=== PATIENT | female | born 1990 | race Caucasian/White ===

== ENCOUNTER 2023-06-02 12:24 | Inpatient (IN) ==
--- NOTE | 2023-06-02 12:47 | Emergency Department Note ---
Impression & Plan Acute alteration in mental status, Acute hypokalemia, Hallucinogenic mushrooms use disorder, moderate ED Provider Note NAME: BOB RIVERA AGE: 32 SEX: F : 1990 ARRIVES VIA: Ambulance INFORMANT: Patient ED PROVIDER(S): Shun Villalobos DO CHIEF COMPLAINT: Altered mental status HPI: Patient is a 32-year-old female who was found outside of a [place] sunbathing [place]. She admits to taking multiple mushrooms. She denies any headache or change in vision. No chest pain or shortness of breath. She denies any belly pain. History is fairly limited as she answers yes and no. She does not know why she is here. PAST MEDICAL HISTORY:See Below PAST SURGICAL HISTORY:See Below FAMILY HISTORY:See Below SOCIAL HISTORY:See Below HOME MEDICATIONS:See Below ALLERGIES:See Below VITALS:See Below PHYSICAL EXAMINATION: GENERAL: Sitting up in bed, alert, well appearing, well nourished, no distress, non-toxic EYE EXAM: normal conjunctiva. PERRL and EOM's grossly intact. OROPHARYNX: no exudate, no erythema, lips, buccal mucosa, and tongue normal and mucous membranes are moist NECK: supple, no nuchal rigidity, no adenopathy, non-tender LUNGS: Clear to auscultation. Normal chest wall mechanics HEART: no murmurs, S1 normal and S2 normal ABDOMEN: abdomen soft, non-tender, normo-active bowel sounds, no masses, no rebound or guarding. BACK: Back is symmetrical on inspection and there is no deformity, no midline tenderness, no CVA tenderness. SKIN: no rashes and no bruising UPPER EXTREMITIES: upper extremities are grossly normal. LOWER EXTREMITIES: No pitting edema. NEURO EXAM: Oriented to person and place moving all extremities but slow to respond to questioning MEDICAL DECISION MAKING: Patient is a 32-year-old female who was found sunbathing naked while outside at [place]. She admits to using mushrooms. IV was established blood work was obtained. Labs show mild leukocytosis of 10,000. No significant anemia. BMP with mild hypokalemia at 2.8. LFTs bilirubin was unremarkable. Troponin was negative. Alcohol, acetaminophen and salicylates were negative. COVID was negative. Her mentation did improve slightly throughout her 6-hour observation within the ER. She was still very anxious and confused with this I discussed the case with the hospitalist for further evaluation and monitoring. Patient was given Ativan while in the ER. Potassium was repleted orally. ED observation The patient was placed in observation status at 1300. Mushroom abuse. During the time in observation, the patient was frequently reassessed and received treatments/testing. On Final reassessment the patient IV as well as blood work and a CT head and chest x-ray which were unremarkable. Patient was given Ativan due to agitation and the patient will be admitted at this time. A total observation time of 6 hours of [facility] Nursing notes reviewed. Limited review of prior medical records performed Vital Signs: reviewed and remarkable for no significant abnormalities Differential diagnosis: Infection, hypoglycemia, electrolyte abnormalities, overdose, toxicologic, cardiac sources, intracerebral event, neurologic, trauma, as well as other pathologies. ER treatment provided: See below Diagnostics interpreted by me include EKG and cardiac monitoring as listed below: -Cardiac Monitoring: An order was placed for continuous cardiac monitoring. The monitor shows a rate of 85 with sinus rhythm. -ECG: Sinus rhythm rate 85 Normal axis No PVCs QTc 454 -Laboratory studies:Interpreted by me as stated above in MDM and shown below. Imaging studies: Xrays: As interpreted by me: Portable AP upright 1 view the chest shows no focal CTs show: CT head was negative Consultation(s): As described in MDM Procedures:none Critical Care: None Past Med/Surg History Social History Smoking Status: Current every day smoker Tobacco Type: Cigarettes Preferred Language: Vietnamese Feels Safe at Home: Yes Allergies Allergies Allergy/AdvReac Type Severity Reaction Status Date / Time No Known Allergies Allergy Verified 06/02/23 15:25 Home Meds Home Medications Medication Instructions Recorded Confirmed No Known Home Medications 06/02/23 06/02/23 Results & Data (ED) Vital Signs Vital Signs - 24 hr 06/02/23 12:48 06/02/23 12:48 06/02/23 13:07 Temperature 36.9 C Temperature Source Oral Pulse Rate 93 H 92 H Pulse Rate [Apical] Respiratory Rate 20 Respiratory Effort / Characteristics Non-Labored Respiratory Depth Normal Respiratory Pattern Regular Blood Pressure 146/99 H Blood Pressure [Right Arm] Blood Pressure Mean 114 Blood Pressure Mean [Right Arm] Pulse Oximetry 99 99 Oxygen Delivery Method Room Air Room Air Oxygen Flow Rate 0 Sepsis Recent Fever Within 48 Hours No Sepsis New/Unexplained Change in Mental Status N/A Sepsis Action Taken by Nursing No Action Required 06/02/23 15:24 06/02/23 17:03 06/02/23 17:14 Temperature Temperature Source Pulse Rate 80 Pulse Rate [Apical] 96 H 85 Respiratory Rate 20 19 Respiratory Effort / Characteristics Non-Labored Respiratory Depth Normal Respiratory Pattern Blood Pressure Blood Pressure [Right Arm] 150/89 H Blood Pressure Mean Blood Pressure Mean [Right Arm] 109 Pulse Oximetry 98 96 Oxygen Delivery Method Room Air Room Air Oxygen Flow Rate Sepsis Recent Fever Within 48 Hours Sepsis New/Unexplained Change in Mental Status Sepsis Action Taken by Nursing 06/02/23 18:28 Temperature Temperature Source Pulse Rate Pulse Rate [Apical] 88 Respiratory Rate 19 Respiratory Effort / Characteristics Non-Labored Respiratory Depth Normal Respiratory Pattern Blood Pressure Blood Pressure [Right Arm] 110/84 Blood Pressure Mean Blood Pressure Mean [Right Arm] 92 Pulse Oximetry 98 Oxygen Delivery Method Room Air Oxygen Flow Rate Sepsis Recent Fever Within 48 Hours Sepsis New/Unexplained Change in Mental Status Sepsis Action Taken by Nursing Laboratory Data 06/02/23 12:41 06/02/23 12:41 Lab Results 06/02/23 06/02/23 06/02/23 Range/Units 12:41 12:41 12:41 WBC 10.89 H (4.8-10.8) K/ul RBC 4.38 (4.20-5.40) M/uL Hgb 13.9 (12.0-16.0) g/dl Hct 40.7 (37.0-47.0) % MCV 92.9 (80.0-100.0) fL MCH 31.7 (25.0-34.0) pg MCHC 34.2 (32.0-36.0) g/dL RDW Std Deviation 43.3 (36.4-46.3) fL RDW Coeff of [place] 12.6 (11.5-14.5) % Plt Count 197 (130-400) K/uL MPV 10.7 (9.4-12.4) fL Immature Gran % (Auto) 0.6 % Neut % (Auto) 75.6 % Lymph % (Auto) 12.0 % Wilkes % (Auto) 11.0 % Eos % (Auto) 0.2 % Baso % (Auto) 0.6 % Neut # (Auto) 8.22 H (1.40-6.50) K/uL Lymph # (Auto) 1.31 (1.2-3.4) K/uL Wilkes # (Auto) 1.20 H (0.11-0.59) K/uL Eos # (Auto) 0.02 (0-0.50) K/uL Baso # (Auto) 0.07 (0-0.2) K/uL Immature Gran # (Auto) 0.07 (0.01-0.20) K/uL Sodium 140 (136-145) mmol/L Potassium 2.8 L (3.5-5.1) mmol/L Chloride 108 H (98-107) mmol/L Carbon Dioxide 23 (21-32) mmol/L Anion Gap 9 (3-11) BUN 8 (6-23) mg/dl Creatinine 0.54 L (0.6-1.2) mg/dl Est Cr Clr Drug Dosing 120.6 ml/min Est GFR ( Amer) 145.7 ml/min Est GFR (Non-Af Amer) 125.7 ml/min BUN/Creatinine Ratio 14.8 (10-20) Glucose 105 H (70-99(Fasting)) mg/dl Calcium 8.6 (8.6-10.3) mg/dl Total Bilirubin 0.6 (0.2-1.0) mg/dl AST 28 (13-39) U/L ALT 23 (7-52) U/L Alkaline Phosphatase 53 (34-104) U/L Troponin I High Sens 7.0 (0-14) pg/ml Total Protein 7.3 (6.0-8.3) gm/dl Albumin 4.2 (3.4-5.0) gm/dl Globulin 3.1 (2.5-4.0) gm/dl Albumin/Globulin Ratio 1.4 (0.9-2) Salicylates < 3.0 L (3.0-30) mg/dl Acetaminophen < 3 L (10-30) ug/ml Ethyl Alcohol mg/dL (<10.0) mg/dl SARS-CoV-2, RNA, NAAT (NEGATIVE) 06/02/23 06/02/23 Range/Units 12:41 13:45 WBC (4.8-10.8) K/ul RBC (4.20-5.40) M/uL Hgb (12.0-16.0) g/dl Hct (37.0-47.0) % MCV (80.0-100.0) fL MCH (25.0-34.0) pg MCHC (32.0-36.0) g/dL RDW Std Deviation (36.4-46.3) fL RDW Coeff of [place] (11.5-14.5) % Plt Count (130-400) K/uL MPV (9.4-12.4) fL Immature Gran % (Auto) % Neut % (Auto) % Lymph % (Auto) % Wilkes % (Auto) % Eos % (Auto) % Baso % (Auto) % Neut # (Auto) (1.40-6.50) K/uL Lymph # (Auto) (1.2-3.4) K/uL Wilkes # (Auto) (0.11-0.59) K/uL Eos # (Auto) (0-0.50) K/uL Baso # (Auto) (0-0.2) K/uL Immature Gran # (Auto) (0.01-0.20) K/uL Sodium (136-145) mmol/L Potassium (3.5-5.1) mmol/L Chloride (98-107) mmol/L Carbon Dioxide (21-32) mmol/L Anion Gap (3-11) BUN (6-23) mg/dl Creatinine (0.6-1.2) mg/dl Est Cr Clr Drug Dosing ml/min Est GFR ( Amer) ml/min Est GFR (Non-Af Amer) ml/min BUN/Creatinine Ratio (10-20) Glucose (70-99(Fasting)) mg/dl Calcium (8.6-10.3) mg/dl Total Bilirubin (0.2-1.0) mg/dl AST (13-39) U/L ALT (7-52) U/L Alkaline Phosphatase (34-104) U/L Troponin I High Sens (0-14) pg/ml Total Protein (6.0-8.3) gm/dl Albumin (3.4-5.0) gm/dl Globulin (2.5-4.0) gm/dl Albumin/Globulin Ratio (0.9-2) Salicylates (3.0-30) mg/dl Acetaminophen (10-30) ug/ml Ethyl Alcohol mg/dL < 10.0 (<10.0) mg/dl SARS-CoV-2, RNA, NAAT NEGATIVE (NEGATIVE) Administered Medications Discontinued Medications Lorazepam (Lorazepam 2 Mg/1 Ml Vial) 1 mg IV NOW STA Stop: 06/02/23 18:13 Last Admin: 06/02/23 18:19 Dose: 1 mg Documented By: Potassium Chloride (Potassium Chloride Crtab 20 Meq Tabcr) 40 meq PO NOW STA Stop: 06/02/23 14:07 Last Admin: 06/02/23 14:52 Dose: 40 meq Documented By: AM Imaging Data Radiologist's Impression: Head CT 06/02/23 12:47 CT head/brain wo con CLINICAL HISTORY: 32 years-old Female with ams. Acutely altered mental status TECHNIQUE: Multiple axial CT images of the head were obtained without contrast. A dose lowering technique was utilized adhering to the principles of ALARA. CT DOSE: 547.75 mGy.cm COMPARISON: None. FINDINGS: No acute intracranial hemorrhage, midline shift, intracranial mass, hydrocephalus, territorial ischemia or abnormal extra-axial collection. The calvarium is intact. Small anterior frontal scalp contusion. The paranasal sinuses, mastoid air cells, and middle ear cavities are clear. IMPRESSION: 1. No acute intracranial abnormality or calvarial fracture. 2. Small anterior frontal scalp contusion. ACT 112: Negative or not required by law. The above report was generated using voice recognition software. It may contain grammatical, syntax or spelling errors. Electronically signed by: Jovon Rivera M.D. 06/02/2023 1:47 PM Chest X-Ray 06/02/23 15:58 XR chest 1V portable HISTORY: 32 years-old Female od acute drug overdose COMPARISON: None TECHNIQUE: AP view of the chest FINDINGS: Cardiac mediastinal and hilar silhouettes are within normal limits. No pneumothorax, pleural effusion, airspace consolidation or pulmonary edema. Bilateral nipple jewelry. Bones appear grossly intact. Mild levoscoliosis of the upper thoracic spine. IMPRESSION: No acute process. ACT 112: Negative or not required by law. The above report was generated using voice recognition software. It may contain grammatical, syntax or spelling errors. Electronically signed by: Jovon Rivera M.D. 06/02/2023 4:58 PM Discharge Plan Visit Data Chief Complaint: Overdose (Accidental) Stated Complaint: OVERDOSE ED Provider: Shun Villalobos Discharge Problem: Acute alteration in mental status, Acute hypokalemia, Hallucinogenic mushrooms use disorder, moderate Forms Stand Alone Forms: My [employer] (acquired by [employer]) Prescriptions Prescriptions: No Action No Known Home Medications Referrals Referrals: PCP,NO [Primary Care Provider] -
[2023-06-02 12:58] LABS: Basophils # (auto) 0.07 K/uL (0-0.2); Basophils % (auto) 0.6 %; Eosinophils # (auto) 0.02 K/uL (0-0.50); Eosinophils % (auto) 0.2 %; Hematocrit (blood only) 40.7 % (37.0-47.0); Hemoglobin 13.9 g/dl (12.0-16.0); Immature Granulocytes # (auto) 0.07 K/uL (0.01-0.20); Immature Granulocytes % (auto) 0.6 %; Lymphocytes # (auto) 1.31 K/uL (1.2-3.4); Mean Corpuscular Hemoglobin 31.7 pg (25.0-34.0); Mean Corpuscular Hgb Conc 34.2 g/dL (32.0-36.0); Mean Corpuscular Volume 92.9 fL (80.0-100.0); Mean Platelet Volume 10.7 fL (9.4-12.4); Neutrophils # (auto) 8.22 K/uL (1.40-6.50); Neutrophils % (auto) 75.6 %; Platelet Count 197 K/uL (130-400); RDW Coefficient of Variation 12.6 % (11.5-14.5); RDW Standard Deviation 43.3 fL (36.4-46.3); Red Blood Count 4.38 M/uL (4.20-5.40); White Blood Count 10.89 K/ul (4.8-10.8)
[2023-06-02 13:14] LABS: Albumin Globulin Ratio 1.4 (0.9-2); Albumin Level 4.2 gm/dl (3.4-5.0); BUN Creatinine Ratio 14.8 (10-20); Bilirubin,Total 0.6 mg/dl (0.2-1.0); Calcium 8.6 mg/dl (8.6-10.3); Creatinine Clr Calc Pharmacy 120.6 ml/min; Est GFR (African American) 145.7 ml/min; Est GFR (Non-African American) 125.7 ml/min; Globulin 3.1 gm/dl (2.5-4.0); Potassium 2.8 mmol/L (3.5-5.1); Total Protein 7.3 gm/dl (6.0-8.3)
[2023-06-02 13:26] LABS: Acetaminophen < 3 ug/ml (10-30); Salicylate < 3.0 mg/dl (3.0-30)
--- NOTE | 2023-06-02 13:49 | CT Scan Report ---
CT head/brain wo con CLINICAL HISTORY: 32 years-old Female with ams. Acutely altered mental status TECHNIQUE: Multiple axial CT images of the head were obtained without contrast. A dose lowering tech nique was utilized adhering to the principles of ALARA. CT DOSE: 547.75 mGy.cm COMPARISON: None. FINDINGS: No acute intracranial hemorrhage, midline shift, intracranial mass, hydrocephalus, territorial ischem ia or abnormal extra-axial collection. The calvarium is intact. Small anterior frontal scalp contusion. The paranasal sinuses, mastoid air cells, and middle ear cavities are clear. IMPRESSION: 1. No acute intracranial abnormality or calvarial fracture. 2. Small anterior frontal scalp contusion. ACT 112: Negative or not required by law. The above report was generated using voice recognition software. It may contain grammatical, syntax o r spelling errors. Electronically signed by: Jovon Rivera M.D. 06/02/2023 1:47 PM
[2023-06-02] MEDS ORDERED: POTASSIUM CHLORIDE CRTAB 20 MEQ TABCR PO STA (14:06)
--- NOTE | 2023-06-02 16:59 | XRay Report ---
XR chest 1V portable HISTORY: 32 years-old Female od acute drug overdose COMPARISON: None TECHNIQUE: AP view of the chest FINDINGS: Cardiac mediastinal and hilar silhouettes are within normal limits. No pneumothorax, pleural effusion , airspace consolidation or pulmonary edema. Bilateral nipple jewelry. Bones appear grossly intact. M ild levoscoliosis of the upper thoracic spine. IMPRESSION: No acute process. ACT 112: Negative or not required by law. The above report was generated using voice recognition software. It may contain grammatical, syntax o r spelling errors. Electronically signed by: Jovon Rivera M.D. 06/02/2023 4:58 PM
[2023-06-02] MEDS ORDERED: LORazepam 2 MG/1 ML VIAL IV STA (18:12)
--- NOTE | 2023-06-02 18:35 | History & Physical Report ---
Date of Service June 02, 2023 Assessment & Plan (1) Acute alteration in mental status: (2) Hallucinogenic mushrooms use disorder, moderate: (3) Anxiety: Plan: This is a 32yo F with PMH of anxiety who was found lying in the grass outside of a [place] sunbathing naked after taking multiple mushrooms. Starting to wake up and answer some questions appropriately but still requiring frequent reorientation Cannot provide a phone number of family or an address, does not have cell phone with her VSS, CT head and CXR unremarkable, salicylates, acetaminophen and etoh levels negative, full utox pending 1:1 due to periods of agitation, unsafe to return home until more coherent Valium 5mg PO TID, Ativan 0.5mg PO Q6H PRN, encourage PO intake of fluids (4) Acute hypokalemia: Plan: Potassium 2.8. Replacing, repeat BMP in AM DVT Ppx: Early ambulation Code status: FULL PCP: no PCP Dispo: Observation med/surg Patient seen in collaboration with Dr. Mathews. Please see addendum. History of Present Illness Primary Care Provider: NO PCP This is a 32yo F with PMH of anxiety who was found lying in the grass outside of a [place] sunbathing naked. Initially admitted to EMS to taking multiple mushrooms. Denies any pain but states she is beginning to feel more anxious. When asked about where she lives or if she has any friends or family to call, she declines to share any of that information at this time. Does not have her cell phone with her. Denies any headache, CP, SOB or abdominal pain. Remainder of ROS unobtainable due to altered state. Does not understand why she is in a hospital and speaks of wanting to return to her "other reality". Used to take anti-anxiety medication but no longer takes anything. Denies use of alcohol, mushrooms or marijuana. Allergies Allergy/AdvReac Type Severity Reaction Status Date / Time No Known Allergies Allergy Verified 06/02/23 15:25 Home Medications Medication Instructions Recorded Confirmed Type No Known Home Medications 06/02/23 06/02/23 History Past Med/Surg History Medical History (Updated 06/02/23 @ 19:03 by Mei Vivar PA-C) Anxiety Surgical History (Updated 06/02/23 @ 18:59 by Mei Cb, PA-C) Surgical history unknown Family History (Updated 06/02/23 @ 18:59 by Mei Vivar PA-C) Other Family history unknown Social History Smoking Status: Current every day smoker Tobacco Type: Cigarettes Hx Substance Use: Yes Last Used Substance: Just Prior to Arrival Substance Use Type Other:: mushrooms Preferred Language: Spanish Communication Ability: Effective Current Living Situation: Alone Feels Safe at Home: Yes Assistive Devices: None Review of Systems Review of Systems: Unobtainable due to cognitive status Physical Exam Physical Exam: General Appearance: WD/WN, vitals as above, NAD, sitting up in bed, pleasant but anxious, tremulous Head: normocephalic, atraumatic Eyes: normal inspection, PERRL, conjunctivae normal, anicteric sclerae ENT: external ear and nose normal, oropharynx normal Neck: normal visual inspection, trachea midline, no thyromegaly Respiratory: normal respiratory effort, lungs clear to auscultation, no wheeze, rales, rhonchi. No accessory muscle use Cardiovascular: regular rate, rhythm, no murmur, normal peripheral pulses, no BLE edema. Vessels: no JVD Chest: normal inspection of chest Abdomen/GI: normal bowel sounds, soft, nontender, no hepatosplenomegaly Extremities/Musculoskeletal: no cyanosis or clubbing, extremities motor strength 5/5 Neurologic: PERRL, EOMI, accommodation nl, no face palsy, no dysarthria, CN's II-XI intact bilaterally and moves all extremities Psychiatric: A+Ox to person, place and time but needs frequent redirection and reminder of questions, poor insight, still appears to be hallucinating at times Skin: no rashes, normal color, warm/dry Results & Data Results & Data Vital Signs (Past 12 Hours) Vital Signs Temp Pulse Pulse Resp BP BP Pulse Ox 06/02/23 18:28 88 19 110/84 98 06/02/23 17:14 80 06/02/23 17:03 85 19 96 06/02/23 15:24 96 H 20 150/89 H 98 06/02/23 13:07 92 H 06/02/23 12:48 99 06/02/23 12:48 36.9 C 93 H 20 146/99 H 99 O2 Del Method O2 Flow Rate 06/02/23 18:28 Room Air 06/02/23 17:14 06/02/23 17:03 Room Air 06/02/23 15:24 Room Air 06/02/23 13:07 06/02/23 12:48 Room Air 0 06/02/23 12:48 Room Air Laboratory Results Short CBC 06/02/23 Range/Units 12:41 WBC 10.89 H (4.8-10.8) K/ul Hgb 13.9 (12.0-16.0) g/dl Hct 40.7 (37.0-47.0) % Plt Count 197 (130-400) K/uL BMP 06/02/23 12:41 Sodium 140 Potassium 2.8 L Chloride 108 H Carbon Dioxide 23 BUN 8 Creatinine 0.54 L Glucose 105 H Calcium 8.6 Liver Function 06/02/23 Range/Units 12:41 Total Bilirubin 0.6 (0.2-1.0) mg/dl AST 28 (13-39) U/L ALT 23 (7-52) U/L Alkaline Phosphatase 53 (34-104) U/L Albumin 4.2 (3.4-5.0) gm/dl ECG Additional Comments: Normal sinus rhythm Possible Left atrial enlargement Borderline ECG No previous ECGs available Supervising Physician Co-Signing Physician Notes Patient seen and examined independently. Discussed with above provider. Patient is a 32-year-old female with no known past medical history was brought to the ED after she was reportedly found naked sunbathing. Initially, patient had endorsed taking hallucination mushrooms. However, she denied used when interviewed. CT head without contrast did not show any acute abnormality Labs remarkable for low potassium which was replaced. Admitted to [facility] floor. One-to-one observation for safety. Scheduled Valium and Ativan as needed.
[2023-06-02] MEDS ORDERED: ONDANSETRON INJ 2 MG/ML 2 ML VIAL IV PRN (21:37)
[2023-06-02] MEDS ORDERED: ACETAMINOPHEN 325 MG TAB PO PRN (21:37)
[2023-06-02] MEDS ORDERED: POLYETHYLENE (MIRALAX) 17 GM PACK PO PRN (21:37)
[2023-06-02] MEDS: POTASSIUM CHLORIDE CRTAB 20 MEQ TABCR PO SCH (22:25)
[2023-06-02] MEDS: diazePAM 5 MG TABLET PO SCH (22:25)
[2023-06-02] MEDS: LORazepam 0.5 MG TAB PO PRN (23:26)
[2023-06-03] MEDS: diazePAM 5 MG TABLET PO SCH ×3 (06:06→17:08)
[2023-06-03 06:31] LABS: Hematocrit (blood only) 37.4 % (37.0-47.0); Hemoglobin 12.7 g/dl (12.0-16.0); Mean Corpuscular Hemoglobin 31.6 pg (25.0-34.0); Mean Platelet Volume 10.8 fL (9.4-12.4); Platelet Count 203 K/uL (130-400); RDW Coefficient of Variation 12.8 % (11.5-14.5); RDW Standard Deviation 43.7 fL (36.4-46.3); Red Blood Count 4.02 M/uL (4.20-5.40); White Blood Count 7.68 K/ul (4.8-10.8)
--- NOTE | 2023-06-03 07:00 | Electrocardiogram Report ---
Test Reason : Blood Pressure : / mmHG Vent. Rate : 085 BPM Atrial Rate : 085 BPM P-R Int : 154 ms QRS Dur : 074 ms QT Int : 382 ms P-R-T Axes : 069 066 045 degrees QTc Int : 454 ms Normal sinus rhythm Possible Left atrial enlargement Borderline ECG No previous ECGs available Confirmed by Jesse Ureña ([id number]) on 06/03/2023 6:59:55 AM Referred By: REFERRED SELF Confirmed By:Telly Ureña
[2023-06-03 07:11] LABS: Anion Gap 4 (3-11); BUN Creatinine Ratio 10.6 (10-20); Blood Urea Nitrogen 5 mg/dl (6-23); Calcium 8.7 mg/dl (8.6-10.3); Carbon Dioxide 27 mmol/L (21-32); Chloride 106 mmol/L (98-107); Creatinine Clr Calc Pharmacy 137.2 ml/min; Est GFR (African American) > 150.0 ml/min; Est GFR (Non-African American) 131.6 ml/min; Glucose 98 mg/dl (70-99(Fasting)); Magnesium 1.9 mg/dl (1.7-2.4); Potassium 3.6 mmol/L (3.5-5.1); Sodium 137 mmol/L (136-145)
[2023-06-03 07:16] LABS: Amphetamines+Metham, Urine Neg (Neg); Barbiturates, Urine Neg (Neg); Benzodiazepine, Urine Neg (Neg); Cocaine, Urine Neg (Neg); MDMA (Ecstacy), Urine Neg (Neg); Methadone, Urine Neg (Neg); Opiate, Urine Neg (Neg); Phencyclidine, Urine Neg (Neg)
[2023-06-03] MEDS: LORazepam 0.5 MG TAB PO PRN (08:04)
[2023-06-03] MEDS: POTASSIUM CHLORIDE CRTAB 20 MEQ TABCR PO SCH (08:04)
[2023-06-03] MEDS ORDERED: Ativan PO Alcohol Withdrawal--Active Protocol PO PRN (11:27)
[2023-06-03] MEDS ORDERED: GABAPENTIN 600MG ALCOHOL WITHDRAWAL LOAD PO STA (11:27)
[2023-06-03] MEDS ORDERED: LORazepam 1 MG TAB PO PRN ×3 (11:27→11:29)
--- NOTE | 2023-06-03 11:50 | Hospitalist Progress Note ---
Date of Service June 03, 2023 Assessment & Plan (1) Acute alteration in mental status: (2) Alcohol withdrawal: (3) Hallucinogenic mushrooms use disorder, moderate: (4) Anxiety: Plan: This is a 32yo F with PMH of anxiety who was found lying in the grass outside of a confucianism sunbathing naked after taking multiple mushrooms. On presentation to the ED, vital stable. CT head and chest x-ray unremarkable. Initial, patient endorsed use of hallucinogenic mushrooms. However, later denied any use. U tox negative. Psychiatry consulted as patient continues to be tremulous, appears anxious and continued to have hallucination after observing for 18 hours. Discussed with psychiatry, patient endorsed to use of 6 beers per day for the last 1.5 months; last use of beer was in the morning prior to admission. She had denied alcohol use on admission. Started on alcohol withdrawal protocol with gabapentin, Valium and Ativan Collateral information to be obtained by psych from her family Continue to monitor for withdrawal. Continue with thiamine, folic acid (5) Acute hypokalemia: Plan: Potassium 2.8. Replaced. Repeat BMP showed improvement in sodium level. DVT Ppx: Early ambulation Code status: FULL PCP: no PCP Dispo: Observation med/surg Please note the above document was generated using voice recognition software. It may contain grammatical, syntax or spelling errors. Any formal questions or concerns about the content, text or information contained within the body of this dictation should be directly addressed to the provider for clarification Admission and Anticipated Discharge Date Admission Date: June 02, 2023 Subjective Patient seen and examined at bedside. She is comfortably lying in the bed; not in distress. Reports tremors. Also hallucination reported by cocoa mill operator of Systems Review of Systems: All systems reviewed & are unremarkable except as noted in Subjective Physical Exam Physical Exam: Constitutional: AOx3; appears tremulous Respiratory: normal respiratory effort, lungs clear to auscultation, no wheeze, rales, rhonchi. Normal insp/exp effort, no accessory muscle use Cardiovascular: RRR, no murmur, no edema Vessels: no JVD or carotid bruit Chest: normal inspection of chest Abdomen: normal bowel sounds, soft, nontender, no hepatosplenomegaly Musculoskeletal: no cyanosis or clubbing, extremities motor strength 5/5 Skin: no rashes, warm and dry normal turgor Neurologic: PERRL, EOMI, accommodation nl, no face palsy, no dysarthria CN's II- XI intact bilaterally and moves all extremities Psychiatric: A+Ox3, anxious. Results & Data Results & Data Vital Signs (Past 12 Hours) Vital Signs Temp Pulse Resp BP Pulse Ox O2 Del Method 06/03/23 07:30 37 C 82 16 115/73 97 Room Air Laboratory Results Laboratory Results WBC 7.68 K/ul (4.8-10.8) 06/03/23 06:07 RBC 4.02 M/uL (4.20-5.40) L 06/03/23 06:07 Hgb 12.7 g/dl (12.0-16.0) 06/03/23 06:07 Hct 37.4 % (37.0-47.0) 06/03/23 06:07 MCV 93.0 fL (80.0-100.0) 06/03/23 06:07 MCH 31.6 pg (25.0-34.0) 06/03/23 06:07 MCHC 34.0 g/dL (32.0-36.0) 06/03/23 06:07 RDW Std Deviation 43.7 fL (36.4-46.3) 06/03/23 06:07 RDW Coeff of [place] 12.8 % (11.5-14.5) 06/03/23 06:07 Plt Count 203 K/uL (130-400) 06/03/23 06:07 MPV 10.8 fL (9.4-12.4) 06/03/23 06:07 Immature Gran % (Auto) 0.6 % 06/02/23 12:41 Neut % (Auto) 75.6 % 06/02/23 12:41 Lymph % (Auto) 12.0 % 06/02/23 12:41 [place] % (Auto) 11.0 % 06/02/23 12:41 Eos % (Auto) 0.2 % 06/02/23 12:41 Baso % (Auto) 0.6 % 06/02/23 12:41 Neut # (Auto) 8.22 K/uL (1.40-6.50) H 06/02/23 12:41 Lymph # (Auto) 1.31 K/uL (1.2-3.4) 06/02/23 12:41 [place] # (Auto) 1.20 K/uL (0.11-0.59) H 06/02/23 12:41 Eos # (Auto) 0.02 K/uL (0-0.50) 06/02/23 12:41 Baso # (Auto) 0.07 K/uL (0-0.2) 06/02/23 12:41 Immature Gran # (Auto) 0.07 K/uL (0.01-0.20) 06/02/23 12:41 Sodium 137 mmol/L (136-145) 06/03/23 06:07 Potassium 3.6 mmol/L (3.5-5.1) D 06/03/23 06:07 Chloride 106 mmol/L (98-107) 06/03/23 06:07 Carbon Dioxide 27 mmol/L (21-32) 06/03/23 06:07 Anion Gap 4 (3-11) 06/03/23 06:07 BUN 5 mg/dl (6-23) L 06/03/23 06:07 Creatinine 0.47 mg/dl (0.6-1.2) L 06/03/23 06:07 Est Cr Clr Drug Dosing 137.2 ml/min 06/03/23 06:07 Est GFR ( Amer) > 150.0 ml/min 06/03/23 06:07 Est GFR (Non-Af Amer) 131.6 ml/min 06/03/23 06:07 BUN/Creatinine Ratio 10.6 (10-20) 06/03/23 06:07 Glucose 98 mg/dl (70-99(Fasting)) 06/03/23 06:07 Calcium 8.7 mg/dl (8.6-10.3) 06/03/23 06:07 Magnesium 1.9 mg/dl (1.7-2.4) 06/03/23 06:07 Total Bilirubin 0.6 mg/dl (0.2-1.0) 06/02/23 12:41 AST 28 U/L (13-39) 06/02/23 12:41 ALT 23 U/L (7-52) 06/02/23 12:41 Alkaline Phosphatase 53 U/L (34-104) 06/02/23 12:41 Troponin I High Sens 7.0 pg/ml (0-14) 06/02/23 12:41 Total Protein 7.3 gm/dl (6.0-8.3) 06/02/23 12:41 Albumin 4.2 gm/dl (3.4-5.0) 06/02/23 12:41 Globulin 3.1 gm/dl (2.5-4.0) 06/02/23 12:41 Albumin/Globulin Ratio 1.4 (0.9-2) 06/02/23 12:41 Salicylates < 3.0 mg/dl (3.0-30) L 06/02/23 12:41 Urine Opiates Screen Neg (Neg) 06/03/23 06:11 Ur Methadone, Qual Neg (Neg) 06/03/23 06:11 Acetaminophen < 3 ug/ml (10-30) L 06/02/23 12:41 Urine Barbiturates Neg (Neg) 06/03/23 06:11 Ur Phencyclidine (PCP) Neg (Neg) 06/03/23 06:11 U Amphetamin/Meth Scrn Neg (Neg) 06/03/23 06:11 MDMA (Ecstasy) Screen Neg (Neg) 06/03/23 06:11 U Benzodiazepines Scrn Neg (Neg) 06/03/23 06:11 Ur Cocaine Metabolite Neg (Neg) 06/03/23 06:11 U Marijuana (THC) Screen Neg (Neg) 06/03/23 06:11 Ethyl Alcohol mg/dL < 10.0 mg/dl (<10.0) 06/02/23 12:41 SARS-CoV-2, RNA, NAAT NEGATIVE (NEGATIVE) 06/02/23 18:[address] 06/02/23 12:47 CT head/brain wo con CLINICAL HISTORY: 32 years-old Female with ams. Acutely altered mental status TECHNIQUE: Multiple axial CT images of the head were obtained without contrast. A dose lowering technique was utilized adhering to the principles of ALARA. CT DOSE: 547.75 mGy.cm COMPARISON: None. FINDINGS: No acute intracranial hemorrhage, midline shift, intracranial mass, hydrocephalus, territorial ischemia or abnormal extra-axial collection. The calvarium is intact. Small anterior frontal scalp contusion. The paranasal sinuses, mastoid air cells, and middle ear cavities are clear. IMPRESSION: 1. No acute intracranial abnormality or calvarial fracture. 2. Small anterior frontal scalp contusion. ACT 112: Negative or not required by law. The above report was generated using voice recognition software. It may contain grammatical, syntax or spelling errors. Electronically signed by: Jovon Rivera M.D. 06/02/2023 1:47 PM Chest X-Ray 06/02/23 15:58 XR chest 1V portable HISTORY: 32 years-old Female od acute drug overdose COMPARISON: None TECHNIQUE: AP view of the chest FINDINGS: Cardiac mediastinal and hilar silhouettes are within normal limits. No pneumothorax, pleural effusion, airspace consolidation or pulmonary edema. Bilateral nipple jewelry. Bones appear grossly intact. Mild levoscoliosis of the upper thoracic spine. IMPRESSION: No acute process. ACT 112: Negative or not required by law. The above report was generated using voice recognition software. It may contain grammatical, syntax or spelling errors. Electronically signed by: Jovon Rivera M.D. 06/02/2023 4:58 PM
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
[2023-06-03] MEDS: LORazepam 1 MG TAB PO PRN ×2 (12:00→20:08)
[2023-06-03] MEDS ORDERED: GABAPENTIN 600 MG TAB PO ONE (12:00)
[2023-06-03] MEDS: FOLIC ACID 1 MG TAB PO SCH (12:38)
[2023-06-03] MEDS: THIAMINE HCL 100 MG TAB PO SCH (12:38)
[2023-06-03] MEDS ORDERED: LORazepam 2 MG/1 ML VIAL IV STA (16:00)
[2023-06-03] MEDS: GABAPENTIN 100 MG CAP PO SCH (17:07)
[2023-06-03] MEDS: NICOTINE 21 MG/24 HR TDSY TD SCH (20:07)
[2023-06-04] MEDS: diazePAM 5 MG TABLET PO SCH ×2 (00:37→11:32)
[2023-06-04] MEDS: LORazepam 1 MG TAB PO PRN ×2 (00:37→16:36)
[2023-06-04] MEDS: GABAPENTIN 100 MG CAP PO SCH (00:37)
[2023-06-04 09:56] LABS: Anion Gap 5 (3-11); BUN Creatinine Ratio 10.2 (10-20); Blood Urea Nitrogen 5 mg/dl (6-23); Calcium 8.5 mg/dl (8.6-10.3); Carbon Dioxide 28 mmol/L (21-32); Chloride 107 mmol/L (98-107); Creatinine Clr Calc Pharmacy 131.6 ml/min; Est GFR (African American) > 150.0 ml/min; Est GFR (Non-African American) 129.8 ml/min; Glucose 80 mg/dl (70-99(Fasting)); Potassium 3.3 mmol/L (3.5-5.1); Sodium 140 mmol/L (136-145)
--- NOTE | 2023-06-04 11:54 | Psychiatric Progress Note ---
Date of Service June 04, 2023 Impression / Recommendations Impression Diagnostically consistent with unspecified psychosis with broad differential including substance induced or withdrawal (significant alcohol use, UDS negative for all others and now denying hallucinogen use but with collateral reports of 'research tablets" use) versus MDD with psychotic features (collateral notable for recent statements of SI to friends and self-harm via cutting) versus BPAD mixed mood episode versus primary psychotic disorder versus complex PTSD. Certainly showing signs of alcohol withdrawal and fluctuating cognitive status concerning for delirium given frequency and amount of alcohol use with co- occurring hallucinations this should be treated and managed aggressively. Given collateral of recent statements of SI and disorganized behavior leading to admission, once medically clear will likely plan for inpatient psychiatric admission on voluntary versus involuntary status. 06/04/2023: As of this yesterday she is now medically clear, once she is alert enough to participate with interview will assess if she is agreeable to 201 commitment, if not she will meet 302 criteria due to disorganization, hallucinations, recent suicidal statements. (1) Alcohol withdrawal: (2) Acute alteration in mental status: (3) Psychotic disorder: Plan -AWSS, thiamine, folic acid and gabapentin -Agree with use of ativan for hallucinations/agitation given alcohol withdrawal -Agree with 1-on-1 and safe tray -She cannot leave AMA, if she attempts to do so please call security and psych liason as she would meet 302 criteria -Plan for inpatient psychiatric admission on 201 or 302 commitment likely later this evening once alert enough to participate with discussion about options for voluntary vs involuntary treatment Interval History Identifying Information 32 yo woman who lives with her parents in their home in [place] with history of alcohol use, anxiety, BPD and PTSD "with paranoia" per her report admitted medically for hypokalemia after being found naked outside a local [place] and reporting ingestion of hallucinogens. Psychiatry consulted for recommendations for hallucinations. Chief Complaint mute Subjective Subjective Patient was seen & assessed and interval progress reviewed. 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 At times with confusion and speaking to herself as if responding to hallucinations. This morning sleeping and refused breakfast and her medications, did shake her head no when asked if she would be willing to talk with me. On re-assessment this afternoon still sleeping and would not awake to verbal or physical prompts. Physical Exam Psychiatric Orientation: alert and + guarded Apperance: appropriately dressed and appropriately groomed Eye Contact: + poor eye contact Motor Behavior: no abnormal motor movements Speech: + mute Affect: + constricted affect Hallucinations: + auditory hallucinations (responding to internal stimuli earlier in the morning); no visual hallucinations Cognition: + attention not intact Estimated Intelligence: consistent with education level Insight: + limited insight Judgment: + limited judgement Vital Signs (Past 24 Hours) Last Vital Signs Temp 36.5 C 06/04/23 08:05 Pulse 92 H 06/04/23 08:05 Resp 16 06/04/23 08:05 BP 100/61 06/04/23 08:05 Pulse Ox 100 06/04/23 08:05 O2 Del Method Room Air 06/04/23 08:05 O2 Flow Rate 0 06/02/23 12:48 Results & Data (U) Laboratory Results Laboratory Results - last 24 hr 06/04/23 08:38 Sodium 140 Potassium 3.3 L Chloride 107 Carbon Dioxide 28 Anion Gap 5 BUN 5 L Creatinine 0.49 L Est Cr Clr Drug Dosing 131.6 Est GFR ( Amer) > 150.0 Est GFR (Non-Af Amer) 129.8 BUN/Creatinine Ratio 10.2 Glucose 80 Calcium 8.5 L Magnesium 2.0 Current Inpatient Medications Current Inpatient Medications: Current Inpatient Medications Acetaminophen (Acetaminophen 325 Mg Tab) 650 mg PO Q4H PRN PRN Reason: pain/fever Stop: 07/02/23 21:36 Last Admin: 06/03/23 08:03 Dose: 650 mg Diazepam (Diazepam 5 Mg Tablet) 5 mg PO Q8H [facility] Stop: 07/04/23 15:59 Folic Acid (Folic Acid 1 Mg Tab) 1 mg PO QAM [facility] Stop: 07/03/23 11:29 Last Admin: 06/03/23 12:38 Dose: 1 mg Gabapentin (Gabapentin 100 Mg Cap) 200 mg PO Q24H [facility] Stop: 06/06/23 12:01 Gabapentin (Gabapentin 400 Mg Cap) 400 mg PO Q24H [facility] Stop: 06/05/23 12:01 Gabapentin (Gabapentin 600 Mg Tab) 600 mg PO Q24H [facility] Stop: 06/04/23 12:01 Lorazepam (Lorazepam 1 Mg Tab) 2 mg PO UD PRN; Protocol PRN Reason: EtOH Withdrawal AWSS Score 8,9 Stop: 07/03/23 11:26 Last Admin: 06/03/23 22:56 Dose: 2 mg Lorazepam (Lorazepam 1 Mg Tab) 3 mg PO ONCE PRN; Protocol PRN Reason: EtOH Withdrawal AWSS Score 10 & above Lorazepam (Lorazepam 1 Mg Tab) 1 mg PO UD PRN; Protocol PRN Reason: EtOH Withdrawal AWSS Score 6,7 Stop: 07/03/23 11:26 Last Admin: 06/04/23 00:37 Dose: 1 mg Miscellaneous (Ativan Po Alcohol Withdrawal--Active Protocol) 1 each PO UD PRN; Protocol PRN Reason: EtoH Withdrawal AWSS 6,7,8,9,10+ Stop: 07/03/23 11:26 Miscellaneous (Remove Nicoderm Patch) 1 each N/A DAILY@0859 [facility] Stop: 07/04/23 08:58 Nicotine (Nicotine 21 Mg/24 Hr Tdsy) 21 mg TD [facility] Stop: 07/03/23 19:59 Last Admin: 06/03/23 20:07 Dose: 21 mg Ondansetron HCl (Ondansetron Inj 2 Mg/Ml 2 Ml Vial) 4 mg IV Q6H PRN PRN Reason: Nausea Stop: 07/02/23 21:36 Polyethylene Glycol (Polyethylene (Miralax) 17 Gm Pack) 17 gm PO DAILY PRN PRN Reason: Constipation Stop: 07/02/23 21:36 Potassium Chloride (Potassium Chloride Crtab 20 Meq Tabcr) 40 meq PO QAM [facility] Stop: 07/02/23 21:36 Last Admin: 06/03/23 08:04 Dose: 40 meq Thiamine HCl (Thiamine Hcl 100 Mg Tab) 100 mg PO QAM [facility] Stop: 07/03/23 11:29 Last Admin: 06/03/23 12:38 Dose: 100 mg
[2023-06-04] MEDS ORDERED: GABAPENTIN 600 MG TAB PO SCH (12:00)
[2023-06-04] MEDS ORDERED: POTASSIUM CHLORIDE CRTAB 20 MEQ TABCR PO STA (12:54)
--- NOTE | 2023-06-04 12:57 | Hospitalist Progress Note ---
Date of Service June 04, 2023 Assessment & Plan (1) Acute alteration in mental status: (2) Alcohol withdrawal: (3) Hallucinogenic mushrooms use disorder, moderate: (4) Anxiety: Plan: This is a 32yo F with PMH of anxiety who was found lying in the grass outside of a [employer] sunbathing naked after taking multiple mushrooms. On presentation to the ED, vital stable. CT head and chest x-ray unremarkable. Initial, patient endorsed use of hallucinogenic mushrooms. However, later denied any use. U tox negative. Discussed with psychiatry, patient endorsed to use of 6 beers per day for the last 1.5 months; last use of beer was in the morning prior to admission. She had denied alcohol use on admission. on alcohol withdrawal protocol with gabapentin, Valium and Ativan Continue to monitor for withdrawal. Continue with thiamine, folic acid On my assessment on the morning of June 04, 2023; patient does not have significant signs of alcohol withdrawal. She is medically stable. Will appreciate psychiatry input regarding ongoing hallucination (5) Acute hypokalemia: Plan: Repleted DVT Ppx: Early ambulation Code status: FULL PCP: no PCP Dispo: Observation med/surg Please note the above document was generated using voice recognition software. It may contain grammatical, syntax or spelling errors. Any formal questions or concerns about the content, text or information contained within the body of this dictation should be directly addressed to the provider for clarification Admission and Anticipated Discharge Date Admission Date: June 02, 2023 Subjective Patient seen and examined at bedside. She was lying on the bed. She answers questions with yes/no. Denies any discomfort. Review of Systems Review of Systems: All systems reviewed & are unremarkable except as noted in Subjective Physical Exam Physical Exam: Constitutional: AOx3; appears tremulous Respiratory: normal respiratory effort, lungs clear to auscultation, no wheeze, rales, rhonchi. Normal insp/exp effort, no accessory muscle use Cardiovascular: RRR, no murmur, no edema Vessels: no JVD or carotid bruit Chest: normal inspection of chest Abdomen: normal bowel sounds, soft, nontender, no hepatosplenomegaly Musculoskeletal: no cyanosis or clubbing, extremities motor strength 5/5 Skin: no rashes, warm and dry normal turgor Neurologic: PERRL, EOMI, accommodation nl, no face palsy, no dysarthria CN's II- XI intact bilaterally and moves all extremities Psychiatric: A+Ox3, anxious. Results & Data Results & Data Vital Signs (Past 12 Hours) Vital Signs Temp Pulse Resp BP Pulse Ox O2 Del Method 06/04/23 12:00 36.5 C 90 16 104/78 100 Room Air 06/04/23 08:05 36.5 C 92 H 16 100/61 100 Room Air Laboratory Results Laboratory Results WBC 7.68 K/ul (4.8-10.8) 06/03/23 06:07 RBC 4.02 M/uL (4.20-5.40) L 06/03/23 06:07 Hgb 12.7 g/dl (12.0-16.0) 06/03/23 06:07 Hct 37.4 % (37.0-47.0) 06/03/23 06:07 MCV 93.0 fL (80.0-100.0) 06/03/23 06:07 MCH 31.6 pg (25.0-34.0) 06/03/23 06:07 MCHC 34.0 g/dL (32.0-36.0) 06/03/23 06:07 RDW Std Deviation 43.7 fL (36.4-46.3) 06/03/23 06:07 RDW Coeff of [place] 12.8 % (11.5-14.5) 06/03/23 06:07 Plt Count 203 K/uL (130-400) 06/03/23 06:07 MPV 10.8 fL (9.4-12.4) 06/03/23 06:07 Immature Gran % (Auto) 0.6 % 06/02/23 12:41 Neut % (Auto) 75.6 % 06/02/23 12:41 Lymph % (Auto) 12.0 % 06/02/23 12:41 [place] % (Auto) 11.0 % 06/02/23 12:41 Eos % (Auto) 0.2 % 06/02/23 12:41 Baso % (Auto) 0.6 % 06/02/23 12:41 Neut # (Auto) 8.22 K/uL (1.40-6.50) H 06/02/23 12:41 Lymph # (Auto) 1.31 K/uL (1.2-3.4) 06/02/23 12:41 Waller # (Auto) 1.20 K/uL (0.11-0.59) H 06/02/23 12:41 Eos # (Auto) 0.02 K/uL (0-0.50) 06/02/23 12:41 Baso # (Auto) 0.07 K/uL (0-0.2) 06/02/23 12:41 Immature Gran # (Auto) 0.07 K/uL (0.01-0.20) 06/02/23 12:41 Sodium 140 mmol/L (136-145) 06/04/23 08:38 Potassium 3.3 mmol/L (3.5-5.1) L 06/04/23 08:38 Chloride 107 mmol/L (98-107) 06/04/23 08:38 Carbon Dioxide 28 mmol/L (21-32) 06/04/23 08:38 Anion Gap 5 (3-11) 06/04/23 08:38 BUN 5 mg/dl (6-23) L 06/04/23 08:38 Creatinine 0.49 mg/dl (0.6-1.2) L 06/04/23 08:38 Est Cr Clr Drug Dosing 131.6 ml/min 06/04/23 08:38 Est GFR ( Amer) > 150.0 ml/min 06/04/23 08:38 Est GFR (Non-Af Amer) 129.8 ml/min 06/04/23 08:38 BUN/Creatinine Ratio 10.2 (10-20) 06/04/23 08:38 Glucose 80 mg/dl (70-99(Fasting)) 06/04/23 08:38 Calcium 8.5 mg/dl (8.6-10.3) L 06/04/23 08:38 Magnesium 2.0 mg/dl (1.7-2.4) 06/04/23 08:38 Total Bilirubin 0.6 mg/dl (0.2-1.0) 06/02/23 12:41 AST 28 U/L (13-39) 06/02/23 12:41 ALT 23 U/L (7-52) 06/02/23 12:41 Alkaline Phosphatase 53 U/L (34-104) 06/02/23 12:41 Troponin I High Sens 7.0 pg/ml (0-14) 06/02/23 12:41 Total Protein 7.3 gm/dl (6.0-8.3) 06/02/23 12:41 Albumin 4.2 gm/dl (3.4-5.0) 06/02/23 12:41 Globulin 3.1 gm/dl (2.5-4.0) 06/02/23 12:41 Albumin/Globulin Ratio 1.4 (0.9-2) 06/02/23 12:41 Salicylates < 3.0 mg/dl (3.0-30) L 06/02/23 12:41 Urine Opiates Screen Neg (Neg) 06/03/23 06:11 Ur Methadone, Qual Neg (Neg) 06/03/23 06:11 Acetaminophen < 3 ug/ml (10-30) L 06/02/23 12:41 Urine Barbiturates Neg (Neg) 06/03/23 06:11 Ur Phencyclidine (PCP) Neg (Neg) 06/03/23 06:11 U Amphetamin/Meth Scrn Neg (Neg) 06/03/23 06:11 MDMA (Ecstasy) Screen Neg (Neg) 06/03/23 06:11 U Benzodiazepines Scrn Neg (Neg) 06/03/23 06:11 Ur Cocaine Metabolite Neg (Neg) 06/03/23 06:11 U Marijuana (THC) Screen Neg (Neg) 06/03/23 06:11 Ethyl Alcohol mg/dL < 10.0 mg/dl (<10.0) 06/02/23 12:41 SARS-CoV-2, RNA, NAAT NEGATIVE (NEGATIVE) 06/02/23 18:[address] 06/02/23 12:47 CT head/brain wo con CLINICAL HISTORY: 32 years-old Female with ams. Acutely altered mental status TECHNIQUE: Multiple axial CT images of the head were obtained without contrast. A dose lowering technique was utilized adhering to the principles of ALARA. CT DOSE: 547.75 mGy.cm COMPARISON: None. FINDINGS: No acute intracranial hemorrhage, midline shift, intracranial mass, hydrocephalus, territorial ischemia or abnormal extra-axial collection. The calvarium is intact. Small anterior frontal scalp contusion. The paranasal sinuses, mastoid air cells, and middle ear cavities are clear. IMPRESSION: 1. No acute intracranial abnormality or calvarial fracture. 2. Small anterior frontal scalp contusion. ACT 112: Negative or not required by law. The above report was generated using voice recognition software. It may contain grammatical, syntax or spelling errors. Electronically signed by: Jovon Rivera M.D. 06/02/2023 1:47 PM Chest X-Ray 06/02/23 15:58 XR chest 1V portable HISTORY: 32 years-old Female od acute drug overdose COMPARISON: None TECHNIQUE: AP view of the chest FINDINGS: Cardiac mediastinal and hilar silhouettes are within normal limits. No pneumo thorax, pleural effusion, airspace consolidation or pulmonary edema. Bilateral nipple jewelry. Bones appear grossly intact. Mild levoscoliosis of the upper thoracic spine. IMPRESSION: No acute process. ACT 112: Negative or not required by law. The above report was generated using voice recognition software. It may contain grammatical, syntax or spelling errors. Electronically signed by: Jovon Rivera M.D. 06/02/2023 4:58 PM
[2023-06-04] MEDS ORDERED: diazePAM 5 MG TABLET PO SCH (16:00)
[2023-06-04] MEDS: POTASSIUM CHLORIDE CRTAB 20 MEQ TABCR PO SCH (16:14)
[2023-06-04] MEDS: THIAMINE HCL 100 MG TAB PO SCH (16:15)
[2023-06-04] MEDS: FOLIC ACID 1 MG TAB PO SCH (16:15)
[2023-06-04] MEDS: NICOTINE 21 MG/24 HR TDSY TD SCH (16:36)
--- NOTE | 2023-06-04 16:39 | Discharge Summary ---
Date of Service June 04, 2023 Admission HPI Per Admitting Provider This is a 32yo F with PMH of anxiety who was found lying in the grass outside of a [employer] sunbathing naked. Initially admitted to EMS to taking multiple mushrooms. Denies any pain but states she is beginning to feel more anxious. When asked about where she lives or if she has any friends or family to call, she declines to share any of that information at this time. Does not have her cell phone with her. Denies any headache, CP, SOB or abdominal pain. Remainder of ROS unobtainable due to altered state. Does not understand why she is in a hospital and speaks of wanting to return to her "other reality". Used to take anti-anxiety medication but no longer takes anything. Denies use of alcohol, mushrooms or marijuana. Admission Exam Per Admitting Provider General Appearance:WD/WN, vitals as above, NAD, sitting up in bed, pleasant but anxious, tremulous Head: normocephalic, atraumatic Eyes:normal inspection, PERRL, conjunctivae normal, anicteric sclerae ENT: external ear and nose normal, oropharynx normal Neck: normal visual inspection, trachea midline, no thyromegaly Respiratory:normal respiratory effort, lungs clear to auscultation, no wheeze, rales, rhonchi. No accessory muscle use Cardiovascular: regular rate, rhythm, no murmur, normal peripheral pulses, no BLE edema. Vessels: no JVD Chest: normal inspection of chest Abdomen/GI: normal bowel sounds, soft, nontender, no hepatosplenomegaly Extremities/Musculoskeletal: no cyanosis or clubbing, extremities motor strength 5/5 Neurologic: PERRL, EOMI, accommodation nl, no face palsy, no dysarthria, CN's II-XI intact bilaterally and moves all extremities Psychiatric:A+Ox to person, place and time but needs frequent redirection and reminder of questions, poor insight, still appears to be hallucinating at times Skin: no rashes, normal color, warm/dry Principal Diagnosis Psychotic disorder Alcohol withdrawal Discharge Exam Constitutional: Appears to be hallucinating. Not in distress. Respiratory: normal respiratory effort, lungs clear to auscultation, no wheeze, rales, rhonchi. Normal insp/exp effort, no accessory muscle use Cardiovascular: RRR, no murmur, no edema Vessels: no JVD or carotid bruit Chest: normal inspection of chest Abdomen: normal bowel sounds, soft, nontender, no hepatosplenomegaly Musculoskeletal: no cyanosis or clubbing, extremities motor strength 5/5 Skin: no rashes, warm and dry normal turgor Neurologic: PERRL, EOMI, accommodation nl, no face palsy, no dysarthria CN's II- XI intact bilaterally and moves all extremities Psychiatric: A+Ox3, euthymic affect Discharge Data Allergies Allergy/AdvReac Type Severity Reaction Status Date / Time No Known Allergies Allergy Verified 06/02/23 15:25 Consultations 06/02/23 18:27 ED Decision to Admit Stat 06/03/23 08:49 Consult Psychiatry Routine Ordered Studies 06/02/23 12:47 CT head/brain wo con Stat Hospital Course (1) Acute alteration in mental status: (2) Alcohol withdrawal: (3) Hallucinogenic mushrooms use disorder, moderate: (4) Anxiety: (5) Acute hypokalemia: This is a 32yo F with PMH of anxiety who was found lying in the grass outside of a [employer] sunbathing naked after taking multiple mushrooms. On presentation to the ED, vital stable. CT head and chest x-ray unremarkable. Initial, patient endorsed use of hallucinogenic mushrooms. However, later denied any use. U tox negative. Later in the hospitalization, patient endorsed to use of 6 beers per day for the last 1.5 months; last use of beer was in the morning prior to admission. She had denied alcohol use on admission. Patient was placed on alcohol withdrawal protocol with gabapentin, Valium and Ativan Patient's alcohol withdrawal symptoms improved. However, she continued to endorse hallucination. Patient was medically stable for transfer to psychiatric unit. She was transferred to psychiatric unit in the same hospital. Please note the above document was generated using voice recognition software. It may contain grammatical, syntax or spelling errors. Any formal questions or concerns about the content, text or information contained within the body of this dictation should be directly addressed to the provider for clarification Total Time Total Time Spent Total Time Spent (In Minutes): 45 Total Time Includes: Examination of the Patient, Discharge Planning, Medication Reconciliation, Communication With Other Providers and Other Discharge Plan Discharge Items Patient Disposition: Transfer Behavioral Health Fac Reason For Visit: ACCIDENTAL OVERDOSE Discharge Diagnosis: Alcohol withdrawal Psychotic disorder Activity: Resume your previous activity Non-emergency contact: Primary Care Provider Call non-emergency contact if: you have any medication questions and your symptoms worsen Follow-up/Referrals: PCP,NO [Primary Care Provider] - Diet: Regular Addtl Attending Provider Instructions: You were admitted for treatment of alcohol withdrawal. Please continue treatment as per psychiatry. Follow up with PCP after discharge. Pending Studies at Discharge: No Stand-Alone Forms: [employer], Smoking Cessation Skilled Items Lines: None Urinary Catheter: No Medications and DC Order Prescriptions: No Action No Known Home Medications Discharge Orders: Discharge Order (Routine); Ordered 06/04/23 Ordered By: Galo Chandler/Other Patient Handouts: Alcohol Withdrawal: What to Expect, Treating Drug Abuse and Addiction Admission Data Admit Date/Time: 06/04/23 13:09 Attending Provider: Galo Mathews Admit Provider: Galo Mathews Primary Care Provider: PCP,NO Other Providers: Alida Castle Other Interventions: Discharge Summary Assessment (RN) Last Done: 06/04/23 16:42
[2023-06-05] MEDS ORDERED: GABAPENTIN 400 MG CAP PO SCH (12:00)
[2023-06-06] MEDS ORDERED: GABAPENTIN 100 MG CAP PO SCH (12:00)
== END 2023-06-04 18:11 | DRG 918 ==
LOC: ED 12:24 → 3W 12:24
DX: F17.210 Nicotine dependence, cigarettes, uncomplicated; F29 Unspecified psychosis not due to a substance or known physiological condition; F16.20 Hallucinogen dependence, uncomplicated; F41.9 Anxiety disorder, unspecified; F10.939 Alcohol use, unspecified with withdrawal, unspecified; T40.991A Poisoning by other psychodysleptics [hallucinogens], accidental (unintentional), initial encounter; E87.6 Hypokalemia

== ENCOUNTER 2023-06-04 18:14 | Inpatient (IN) ==
[2023-06-04] MEDS ORDERED: ALUMINUM/MAGNESIUM SUSP 30 ML UDC PO PRN (19:27)
[2023-06-04] MEDS ORDERED: LORazepam 1 MG TAB PO PRN ×3 (19:27)
[2023-06-04] MEDS ORDERED: BISMUTH SUBSALICYLATE LIQD 236 ML PO PRN (19:27)
[2023-06-04] MEDS ORDERED: SODIUM CHLORIDE 0.65% NA SOLN 45 ML (OCEAN) PRN (19:27)
[2023-06-04] MEDS ORDERED: Ativan PO Alcohol Withdrawal--Active Protocol PO PRN (19:27)
[2023-06-04] MEDS: ACETAMINOPHEN 325 MG TAB PO PRN (20:25)
[2023-06-04] MEDS: hydrOXYzine HCl 25 MG TAB PO PRN (21:29)
[2023-06-05] MEDS: hydrOXYzine HCl 25 MG TAB PO PRN ×2 (06:55→21:12)
[2023-06-05] MEDS: NICOTINE 21 MG/24 HR TDSY TD SCH (09:47)
[2023-06-05] MEDS: THIAMINE HCL 100 MG TAB PO SCH (09:48)
[2023-06-05] MEDS: FOLIC ACID 1 MG TAB PO SCH (09:48)
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
[2023-06-05] MEDS: POTASSIUM CHLORIDE CRTAB 20 MEQ TABCR PO SCH (13:41)
[2023-06-05] MEDS: ACETAMINOPHEN 325 MG TAB PO PRN (19:14)
[2023-06-05] MEDS: NICOTINE POLACRILEX 2 MG GUM MT PRN (19:41)
[2023-06-05] MEDS: OLANZapine 10 MG TAB PO SCH (21:12)
[2023-06-06] MEDS: NICOTINE 21 MG/24 HR TDSY TD SCH (08:33)
[2023-06-06] MEDS: FOLIC ACID 1 MG TAB PO SCH (08:33)
[2023-06-06] MEDS: THIAMINE HCL 100 MG TAB PO SCH (08:33)
[2023-06-06] MEDS: POTASSIUM CHLORIDE CRTAB 20 MEQ TABCR PO SCH (08:33)
[2023-06-06] MEDS: hydrOXYzine HCl 25 MG TAB PO PRN ×2 (09:15→21:06)
[2023-06-06] MEDS: OLANZAPINE 2.5 MG TAB PO PRN ×2 (14:43→17:53)
[2023-06-06] MEDS: NICOTINE POLACRILEX 2 MG GUM MT PRN ×2 (16:36→19:20)
--- NOTE | 2023-06-06 20:01 | Psychiatric Progress Note ---
Date of Service June 06, 2023 Impression / Recommendations Impression Juliet is a 32 year old woman with a history of PTSD, alcohol use disorder, BPD and anxiety who was admitted for psychosis and SI. Diagnostically consistent with unspecified psychosis with broad differential including MDD with psychotic features vs substance-induced or withdrawal (significant alcohol use, UDS negative for all others but concern for possible use of unknown "research tablets" or synthetic compound that would not show up on UDS) vs complex PTSD vs BPAD mixed episode (no current signs of grzegorz but possible contributed to events leading to hospitalization and now with more depressive presentation) vs depersonalization/derealization disorder (unlikely given psychosis) vs 2/2 medical condition given hypokalemia but otherwise considered medically stable by hospitalist service workup and normal head CT on admission. She is deemed in need of psychiatric hospitalization for diagnostic clarification, safety and stabilization, medication management and development of further coping skills. MNPR due to acute psychosis, trauma history, psychic distress 06/06/2023: Ongoing acute psychosis with significant delusions and auditory hallucinations. Remains overwhelmed and isolative to her room. She is tolerating olanzapine and consents to option for prn doses during the day to try in effort to reduce the voices. No longer scoring on AWSS or showing signs of alcohol withdrawal. (1) Psychotic disorder: (2) Alcohol withdrawal: (3) Anxiety: (4) Alcohol use disorder: (5) Post traumatic stress disorder (PTSD): Plan 06/06/2023: Increase olanzapine to 2.5mg QID prn for psychosis and 10mg HS po 06/05/2023: The patient was admitted to the [facility] ([facility] mental health unit) on q15 min checks (behavioral with suicide precautions) for safety. The patient will participate in group, recreational, and milieu therapies and will be offered additional individual and family sessions as clinically appropriate. -Continue AWSS with thiamine and folic acid -Potassium supplementation 20 meq qd and will recheck CMP in 2-3 days with fasting lipid profile and glucose -Given decreased AWSS scoring and her level of acute distress will start Olanzapine 10mg HS po as benefits felt to outweigh risks of lowered seizure threshold Inventory Assets Strengths: supportive relationships, willing to get treatment Needs: safety and stabilization, medication adjustment, additional coping skills, increased outpatient services Suicide Risk Level Suicide Risk Level: High-Moderate (q15 min suicide checks) (depression with SI , psychosis and derealization but feels safe in the hospital, able to safety contract and agrees to let nursing/staff know should they develop plan, intent or feel unable to remain safe.) Suicide Risk Level Comments: Risk Factors Assessment Male: No : Yes Do You Have Access To A Gun?: No Health Problems: No Mental Health Diagnoses: Yes Substance Use Disorders: Yes Previous Attempt: No Family History of Suicide: No Previous Psychiatric Hospitalization: No Protective Factors Assessment Employed: Yes Stable Relationships: Yes Supportive Family: Yes Interval History Identifying Information JULIET RIVERA is a 32-year-old woman who currently lives in [place] with her parents, has a history of anxiety, alcohol use disorder, PTSD and BPD, and was admitted on 06/04/23 18:14 on a 201 voluntary commitment for psychosis, odd behavior and SI. Chief Complaint "The voices kept telling me 'don't listen to them'". Review of Systems Sleep Information Total Hours of Sleep: 7.25 Meal Information Percent Meal Consumed - Breakfast: 90 Percent Meal Consumed - Lunch: 100 Percent Meal Consumed - Dinner: 75 Subjective Subjective Patient was seen & assessed and interval progress reviewed with treatment team nursing and social work. She thinks she slept well last night but isn't sure if she was actually sleeping or "just in a sleep like state". She did feel like the olanzapine helped her feel tired but isn't sure if it helped with the voices. The voices continue to tell her challenging things such as telling her not to listen to her parents while she was talking to them on the phone and making her question who is actually talking as "the voices get really loud when I'm talking to people face to face". She appears very distressed stating "it feels like people are controlling me on the other side". Physical Exam Psychiatric Orientation: alert and oriented x 3 Apperance: appropriately dressed and appropriately groomed Eye Contact: good eye contact Motor Behavior: no abnormal motor movements Speech: + abnormal rate/rhythm/volume of speech (soft, slightly latent at times) Affect: + depressed affect, + anxious affect and + tearful affect Mood: + depressed mood and + anxious mood Thought Process: + thought blocking and + circumstantial thought process Thought Content: + paranoid, + delusions, + ideas of reference, + derealization and + thought broadcasting Suicidal Thoughts: denies suicidal plan and denies suicidal intent; + reports suicidal thoughts (intermittent thoughts ) Homicidal Thoughts: denies homicidal thoughts Hallucinations: + auditory hallucinations (variety of voices ); no visual hallucinations, no tactile hallucinations and no gustatory hallucinations Cognition: remote memory grossly intact, attention grossly intact and language grossly intact; + recent memory not intact Estimated Intelligence: consistent with education level Insight: + limited insight Judgment: + limited judgement Vital Signs (Past 24 Hours) Last Vital Signs Temp 36.8 C 06/06/23 10:22 Pulse 70 06/06/23 10:22 Resp 18 06/06/23 10:22 BP 99/62 L 06/06/23 10:22 Pulse Ox 99 06/05/23 20:54 O2 Del Method Room Air 06/05/23 20:54 Results & Data ([facility]) Current Inpatient Medications Current Inpatient Medications: Current Inpatient Medications Acetaminophen (Acetaminophen 325 Mg Tab) 650 mg PO Q4H PRN PRN Reason: Headache or Minor Fever Stop: 07/04/23 19:26 Last Admin: 06/05/23 19:14 Dose: 650 mg Al Hydrox/Mg Hydrox/Simethicone (Aluminum/Magnesium Susp 30 Ml Udc) 30 ml PO Q4H PRN PRN Reason: GI Upset Stop: 07/04/23 19:26 Bismuth Subsalicylate (Bismuth Subsalicylate Liqd 236 Ml) 15 ml PO PRN PRN PRN Reason: Loose Stool Stop: 07/04/23 19:26 Folic Acid (Folic Acid 1 Mg Tab) 1 mg PO QAM KIMBERLI Stop: 07/05/23 08:59 Last Admin: 06/06/23 08:33 Dose: 1 mg Hydroxyzine HCl (Hydroxyzine Hcl 25 Mg Tab) 50 mg PO HSZ PRN PRN Reason: Insomnia Stop: 07/04/23 19:26 Last Admin: 06/05/23 21:12 Dose: 50 mg Hydroxyzine HCl (Hydroxyzine Hcl 25 Mg Tab) 25 mg PO Q4H PRN PRN Reason: Anxiety Stop: 07/04/23 19:26 Last Admin: 06/06/23 09:15 Dose: 25 mg Magnesium Hydroxide (Magnesium Hydroxide Susp 30 Ml Udc) 30 ml PO DAILY PRN PRN Reason: Constipation Stop: 07/04/23 19:26 Miscellaneous (Remove Nicoderm Patch) 1 each N/A DAILY@0859 [facility] Stop: 07/05/23 08:58 Last Admin: 06/06/23 08:33 Dose: 1 each Nicotine (Nicotine 21 Mg/24 Hr Tdsy) 21 mg TD QAM [facility] Stop: 07/05/23 08:59 Last Admin: 06/06/23 08:33 Dose: 21 mg Nicotine Polacrilex (Nicotine Polacrilex 2 Mg Gum) 1 piece MT PRN PRN PRN Reason: nicotine withdrawal Stop: 07/05/23 13:00 Last Admin: 06/06/23 19:20 Dose: 1 piece Olanzapine (Olanzapine 10 Mg Tab) 10 mg PO HS KIMBERLI Stop: 07/05/23 21:59 Last Admin: 06/05/23 21:12 Dose: 10 mg Olanzapine (Olanzapine 2.5 Mg Tab) 2.5 mg PO QID PRN PRN Reason: psychosis Stop: 07/06/23 16:59 Last Admin: 06/06/23 17:53 Dose: 2.5 mg Potassium Chloride (Potassium Chloride Crtab 20 Meq Tabcr) 20 meq PO QAM [facility] Stop: 07/05/23 13:14 Last Admin: 06/06/23 08:33 Dose: 20 meq Sodium Chloride (Sodium Chloride 0.65% Na Soln 45 Ml ([place])) 1 - 2 sprays NA PRN PRN PRN Reason: Nasal Dryness/Congestion Stop: 07/04/23 19:26 Thiamine HCl (Thiamine Hcl 100 Mg Tab) 100 mg PO QAM [facility] Stop: 07/05/23 08:59 Last Admin: 06/06/23 08:33 Dose: 100 mg
[2023-06-06] MEDS: OLANZapine 10 MG TAB PO SCH (21:06)
--- NOTE | 2023-06-07 08:57 | Psychiatric Progress Note ---
Date of Service June 07, 2023 Impression / Recommendations Impression Juliet is a 32 year old woman with a history of PTSD, alcohol use disorder, BPD and anxiety who was admitted for psychosis and SI. Diagnostically consistent with unspecified psychosis with broad differential including MDD with psychotic features vs substance-induced or withdrawal (significant alcohol use, UDS negative for all others but concern for possible use of unknown "research tablets" or synthetic compound that would not show up on UDS) vs complex PTSD vs BPAD mixed episode (no current signs of grzegorz but possible contributed to events leading to hospitalization and now with more depressive presentation) vs depersonalization/derealization disorder (unlikely given psychosis) vs 2/2 medical condition given hypokalemia but otherwise considered medically stable by hospitalist service workup and normal head CT on admission. She is deemed in need of psychiatric hospitalization for diagnostic clarification, safety and stabilization, medication management and development of further coping skills. MNPR due to acute psychosis, trauma history, psychic distress 06/07/2023: Showing some signs of improvement today with lessening of psychosis, better able to focus on conversations and asking appropriate questions about medications/reality-based topics. Tolerating and finding olanzapine helpful but still with increased psychosis on awakening. She consents to morning dose of olanzapine. Reviewed option to later consider SNRI to help with anxiety, for now she is finding olanzapine very beneficial for this. Ongoing motivational interviewing, she is contemplative about starting treatment for alcohol use at [facility] after discharge and plans to avoid any further cannabis use. Discussed medication treatment options in detail. Discussed risks, benefits and alternatives. She continues to consent to use of olanzapine for unspecified psychosis.Reviewed side effects including but not limited to: movement (TD, NMS), cardiac (QTc prolongation), and metabolic (stroke, insulin resistance) and necessity for fasting lipid and glucose labwork and AIMS done with score of 0. (1) Psychotic disorder: (2) Alcohol withdrawal: (3) Anxiety: (4) Alcohol use disorder: (5) Post traumatic stress disorder (PTSD): Plan 06/07/2023: Increase to olanzapine 2.5mg qAM and 10mg HS. fasting glucose and lipid panel in the AM. 06/06/2023: Increase olanzapine to 2.5mg QID prn for psychosis and 10mg HS po 06/05/2023: The patient was admitted to the [facility] (locked inpatient mental health unit) on q15 min checks (behavioral with suicide precautions) for safety. The patient will participate in group, recreational, and milieu therapies and will be offered additional individual and family sessions as clinically appropriate. -Continue AWSS with thiamine and folic acid -Potassium supplementation 20 meq qd and will recheck CMP in 2-3 days with fasting lipid profile and glucose -Given decreased AWSS scoring and her level of acute distress will start Olanzap ine 10mg HS po as benefits felt to outweigh risks of lowered seizure threshold Inventory Assets Strengths: supportive relationships, willing to get treatment Needs: safety and stabilization, medication adjustment, additional coping skills, increased outpatient services Suicide Risk Level Suicide Risk Level: Moderate (q15 min suicide checks) (depression with SI , psychosis and derealization but feels safe in the hospital, able to safety contract and agrees to let nursing/staff know should they develop plan, intent or feel unable to remain safe.) Suicide Risk Level Comments: Risk Factors Assessment Male: No : Yes Do You Have Access To A Gun?: No Health Problems: No Mental Health Diagnoses: Yes Substance Use Disorders: Yes Previous Attempt: No Family History of Suicide: No Previous Psychiatric Hospitalization: No Protective Factors Assessment Employed: Yes Stable Relationships: Yes Supportive Family: Yes Interval History Identifying Information JULIET RIVERA is a 32-year-old woman who currently lives in [place] with her parents, has a history of anxiety, alcohol use disorder, PTSD and BPD, and was admitted on 06/04/23 18:14 on a 201 voluntary commitment for psychosis, odd behavior and SI. Chief Complaint "I'm a little better today". Review of Systems Sleep Information Total Hours of Sleep: 7 Sleep Comments: Meal Information Percent Meal Consumed - Breakfast: 90 Percent Meal Consumed - Lunch: 100 Percent Meal Consumed - Dinner: 75 Subjective Subjective Patient was seen & assessed and interval progress reviewed with treatment team nursing and social work. gets overstimulated easily. Finding olanzapine prn helpful but experiencing some rapid thoughts. Attended one group last night. Today reports some improvement and lessening of the voices with the olanzapine. Feels better able to distinguish reality. Motivational interviewing regarding substance use prior to admission, she was using some cannabis products and possible these contained synthetics she thinks. Having some constipation. Finding mornings still "the worst, it's when my mind plays tricks". Physical Exam Psychiatric Orientation: alert and oriented x 3 Apperance: appropriately dressed and appropriately groomed Eye Contact: good eye contact Motor Behavior: no abnormal motor movements Speech: + abnormal rate/rhythm/volume of speech (soft, less latent ) Affect: + constricted affect Mood: + depressed mood and + anxious mood Thought Process: + circumstantial thought process Thought Content: + paranoid, reality based without delusions and + derealization Suicidal Thoughts: denies suicidal plan and denies suicidal intent; + reports suicidal thoughts (intermittent thoughts ) Homicidal Thoughts: denies homicidal thoughts Hallucinations: + auditory hallucinations (variety of voices but lessening ); no visual hallucinations, no tactile hallucinations and no gustatory hallucinations Cognition: recent memory grossly intact, remote memory grossly intact, attention grossly intact and language grossly intact Estimated Intelligence: consistent with education level Insight: + limited insight Judgment: + limited judgement Vital Signs (Past 24 Hours) Last Vital Signs Temp 36.7 C 06/07/23 06:52 Pulse 76 06/07/23 06:53 Resp 16 06/07/23 06:52 BP 111/77 06/07/23 06:53 Pulse Ox 99 06/05/23 20:54 O2 Del Method Room Air 06/05/23 20:54 Results & Data ([facility]) Current Inpatient Medications Current Inpatient Medications: Current Inpatient Medications Acetaminophen (Acetaminophen 325 Mg Tab) 650 mg PO Q4H PRN PRN Reason: Headache or Minor Fever Stop: 07/04/23 19:26 Last Admin: 06/05/23 19:14 Dose: 650 mg Al Hydrox/Mg Hydrox/Simethicone (Aluminum/Magnesium Susp 30 Ml Udc) 30 ml PO Q4H PRN PRN Reason: GI Upset Stop: 07/04/23 19:26 Bismuth Subsalicylate (Bismuth Subsalicylate Liqd 236 Ml) 15 ml PO PRN PRN PRN Reason: Loose Stool Stop: 07/04/23 19:26 Folic Acid (Folic Acid 1 Mg Tab) 1 mg PO QAM [facility]BER[facility] Stop: 07/05/23 08:59 Last Admin: 06/06/23 08:33 Dose: 1 mg Hydroxyzine HCl (Hydroxyzine Hcl 25 Mg Tab) 50 mg PO HSZ PRN PRN Reason: Insomnia Stop: 07/04/23 19:26 Last Admin: 06/06/23 21:06 Dose: 50 mg Hydroxyzine HCl (Hydroxyzine Hcl 25 Mg Tab) 25 mg PO Q4H PRN PRN Reason: Anxiety Stop: 07/04/23 19:26 Last Admin: 06/06/23 09:15 Dose: 25 mg Magnesium Hydroxide (Magnesium Hydroxide Susp 30 Ml Udc) 30 ml PO DAILY PRN PRN Reason: Constipation Stop: 07/04/23 19:26 Miscellaneous (Remove Nicoderm Patch) 1 each N/A DAILY@0859 [facility] Stop: 07/05/23 08:58 Last Admin: 06/06/23 08:33 Dose: 1 each Nicotine (Nicotine 21 Mg/24 Hr Tdsy) 21 mg TD QAM [facility]IMBERLI Stop: 07/05/23 08:59 Last Admin: 06/06/23 08:33 Dose: 21 mg Nicotine Polacrilex (Nicotine Polacrilex 2 Mg Gum) 1 piece MT PRN PRN PRN Reason: nicotine withdrawal Stop: 07/05/23 13:00 Last Admin: 06/06/23 19:20 Dose: 1 piece Olanzapine (Olanzapine 10 Mg Tab) 10 mg PO HS KIMBERLI Stop: 07/05/23 21:59 Last Admin: 06/06/23 21:06 Dose: 10 mg Olanzapine (Olanzapine 2.5 Mg Tab) 2.5 mg PO QID PRN PRN Reason: psychosis Stop: 07/06/23 16:59 Last Admin: 06/06/23 17:53 Dose: 2.5 mg Potassium Chloride (Potassium Chloride Crtab 20 Meq Tabcr) 20 meq PO QAM [facility]BER[facility] Stop: 07/05/23 13:14 Last Admin: 06/06/23 08:33 Dose: 20 meq Sodium Chloride (Sodium Chloride 0.65% Na Soln 45 Ml ([place])) 1 - 2 sprays NA PRN PRN PRN Reason: Nasal Dryness/Congestion Stop: 07/04/23 19:26 Thiamine HCl (Thiamine Hcl 100 Mg Tab) 100 mg PO QAM [facility]BER[facility] Stop: 07/05/23 08:59 Last Admin: 06/06/23 08:33 Dose: 100 mg
[2023-06-07] MEDS: NICOTINE 21 MG/24 HR TDSY TD SCH (09:52)
[2023-06-07] MEDS: FOLIC ACID 1 MG TAB PO SCH (09:52)
[2023-06-07] MEDS: POTASSIUM CHLORIDE CRTAB 20 MEQ TABCR PO SCH (09:52)
[2023-06-07] MEDS: THIAMINE HCL 100 MG TAB PO SCH (09:52)
[2023-06-07] MEDS: MAGNESIUM HYDROXIDE SUSP 30 ML UDC PO PRN (15:22)
[2023-06-07] MEDS: OLANZAPINE 2.5 MG TAB PO PRN (15:31)
[2023-06-07] MEDS ORDERED: OLANZAPINE 2.5 MG TAB PO PRN (16:42)
[2023-06-07] MEDS: OLANZapine 10 MG TAB PO SCH (20:57)
[2023-06-08 08:28] LABS: Albumin Globulin Ratio 1.5 (0.9-2); Albumin Level 4.1 gm/dl (3.4-5.0); Bilirubin,Total 0.2 mg/dl (0.2-1.0); Calcium 8.9 mg/dl (8.6-10.3); Chol HDL Ratio 3.2 (0-5); Creatinine Clr Calc Pharmacy 109.4 ml/min; Est GFR (African American) 140.8 ml/min; Est GFR (Non-African American) 121.5 ml/min; Globulin 2.7 gm/dl (2.5-4.0); Potassium 4.1 mmol/L (3.5-5.1); Total Protein 6.8 gm/dl (6.0-8.3)
--- NOTE | 2023-06-08 09:01 | Psychiatric Progress Note ---
Date of Service June 08, 2023 Impression / Recommendations Impression Juliet is a 32 year old woman with a history of PTSD, alcohol use disorder, BPD and anxiety who was admitted for psychosis and SI. Diagnostically consistent with unspecified psychosis with broad differential including MDD with psychotic features vs substance-induced or withdrawal (significant alcohol use, UDS negative for all others but concern for possible use of unknown "research tablets" or synthetic compound that would not show up on UDS) vs complex PTSD vs BPAD mixed episode (no current signs of grzegorz but possible contributed to events leading to hospitalization and now with more depressive presentation) vs depersonalization/derealization disorder (unlikely given psychosis) vs 2/2 medical condition given hypokalemia but otherwise considered medically stable by hospitalist service workup and normal head CT on admission. She is deemed in need of psychiatric hospitalization for diagnostic clarification, safety and stabilization, medication management and development of further coping skills. MNPR due to acute psychosis, trauma history, psychic distress, concerns about reality/derealization when sleeping 06/08/2023: Continuing to show steady progress in terms of lessening of psychosis, still has sense of derealization at times and still with sense of internal anxiety but feels this is improving and finds the olanzapine very helpful. Ongoing motivational interviewing regarding substance use; discussed MAT options for alcohol use and she is very interested in starting naltrexone for alcohol use disorder and consents to this. Reviewed side effects including but not limited to: potential for liver damage, need for routine liver monitoring bloodwork, potential GI side effects and potential for mood symptoms/SI given opiate blockade and need to avoid opioid use. Reviewed CMP with normal AST and ALT. Reviewed fasting glucose and lipid panel which were all normal. (1) Psychotic disorder: (2) Alcohol withdrawal: (3) Anxiety: (4) Alcohol use disorder: (5) Post traumatic stress disorder (PTSD): Plan 06/08/2023: Start naltrexone 50mg qdinner, continue olanzapine, discontinue potassium supplementation given improvement 06/07/2023: Increase to olanzapine 2.5mg qAM and 10mg HS. fasting glucose and lipid panel in the AM. 06/06/2023: Increase olanzapine to 2.5mg QID prn for psychosis and 10mg HS po 06/05/2023: The patient was admitted to the [facility] ([facility] mental health unit) on q15 min checks (behavioral with suicide precautions) for safety. The patient will participate in group, recreational, and milieu therapies and will be offered additional individual and family sessions as clinically appropriate. -Continue AWSS with thiamine and folic acid -Potassium supplementation 20 meq qd and will recheck CMP in 2-3 days with fasting lipid profile and glucose -Given decreased AWSS scoring and her level of acute distress will start Olanzapine 10mg HS po as benefits felt to outweigh risks of lowered seizure threshold Inventory Assets Strengths: supportive relationships, willing to get treatment Needs: safety and stabilization, medication adjustment, additional coping skills, increased outpatient services Suicide Risk Level Suicide Risk Level: Moderate (q15 min suicide checks) (depression with SI , psychosis and derealization but feels safe in the hospital, able to safety contract and agrees to let nursing/staff know should they develop plan, intent or feel unable to remain safe.) Suicide Risk Level Comments: Risk Factors Assessment Male: No : Yes Do You Have Access To A Gun?: No Health Problems: No Mental Health Diagnoses: Yes Substance Use Disorders: Yes Previous Attempt: No Family History of Suicide: No Previous Psychiatric Hospitalization: No Protective Factors Assessment Employed: Yes Stable Relationships: Yes Supportive Family: Yes Interval History Identifying Information JULIET RIVERA is a 32-year-old woman who currently lives in [place] with her parents, has a history of anxiety, alcohol use disorder, PTSD and BPD, and was admitted on 06/04/23 18:14 on a 201 voluntary commitment for psychosis, odd behavior and SI. Chief Complaint "I'm doing ok but I still am questioning things". Review of Systems Sleep Information Total Hours of Sleep: 7 Meal Information Percent Meal Consumed - Breakfast: 100 Percent Meal Consumed - Lunch: 0 Percent Meal Consumed - Dinner: 100 Subjective Subjective Patient was seen & assessed and interval progress reviewed with treatment team nursing and social work. Overall more organized and engaging in groups and spending more time outside of her room and around peers. Feels she is making process and "doing ok" though still finds herself "questioning things" but "I feel more mellow" and "I feel more grounded". She is having some cravings for alcohol but wants to avoid all use after discharge and feels ready and motivated for this. Denies any side effects from olanzapine and found morning dose helpful. Reviewed labwork results. Physical Exam Psychiatric Orientation: alert and oriented x 3 Apperance: appropriately dressed and appropriately groomed Eye Contact: good eye contact Motor Behavior: no abnormal motor movements Speech: normal rate/rhythm/volume of speech Affect: + anxious affect Mood: + depressed mood and + anxious mood Thought Process: + circumstantial thought process Thought Content: reality based without delusions and + derealization Suicidal Thoughts: denies suicidal plan and denies suicidal intent; + reports suicidal thoughts (intermittent thoughts ) Homicidal Thoughts: denies homicidal thoughts Hallucinations: + auditory hallucinations (lessening significantly); no visual hallucinations, no tactile hallucinations and no gustatory hallucinations Cognition: recent memory grossly intact, remote memory grossly intact, attention grossly intact and language grossly intact Estimated Intelligence: consistent with education level Insight: + fair insight Judgment: + limited judgement Vital Signs (Past 24 Hours) Last Vital Signs Temp 36.8 C 06/08/23 06:00 Pulse 65 06/08/23 06:17 Resp 20 06/08/23 06:00 BP 111/76 06/08/23 06:17 Pulse Ox 98 06/08/23 06:00 O2 Del Method Room Air 06/08/23 06:00 Results & Data ([facility]) Laboratory Results Laboratory Results - last 24 hr 06/08/23 07:20 Sodium 142 Potassium 4.1 Chloride 108 H Carbon Dioxide 30 Anion Gap 4 BUN 9 Creatinine 0.60 Est Cr Clr Drug Dosing 109.4 Est GFR ( Amer) 140.8 Est GFR (Non-Af Amer) 121.5 BUN/Creatinine Ratio 15.0 Glucose 90 Calcium 8.9 Total Bilirubin 0.2 AST 19 ALT 25 Alkaline Phosphatase 45 Total Protein 6.8 Albumin 4.1 Globulin 2.7 Albumin/Globulin Ratio 1.5 Triglycerides 106 Cholesterol 161 LDL Cholesterol, Calc 89 VLDL Cholesterol, Calc 21 HDL Cholesterol 51 Cholesterol/HDL Ratio 3.2 Current Inpatient Medications Current Inpatient Medications: Current Inpatient Medications Acetaminophen (Acetaminophen 325 Mg Tab) 650 mg PO Q4H PRN PRN Reason: Headache or Minor Fever Stop: 07/04/23 19:26 Last Admin: 06/05/23 19:14 Dose: 650 mg Al Hydrox/Mg Hydrox/Simethicone (Aluminum/Magnesium Susp 30 Ml Udc) 30 ml PO Q4H PRN PRN Reason: GI Upset Stop: 07/04/23 19:26 Bismuth Subsalicylate (Bismuth Subsalicylate Liqd 236 Ml) 15 ml PO PRN PRN PRN Reason: Loose Stool Stop: 07/04/23 19:26 Folic Acid (Folic Acid 1 Mg Tab) 1 mg PO QAM [facility] Stop: 07/05/23 08:59 Last Admin: 06/07/23 09:52 Dose: 1 mg Hydroxyzine HCl (Hydroxyzine Hcl 25 Mg Tab) 50 mg PO HSZ PRN PRN Reason: Insomnia Stop: 07/04/23 19:26 Last Admin: 06/06/23 21:06 Dose: 50 mg Hydroxyzine HCl (Hydroxyzine Hcl 25 Mg Tab) 25 mg PO Q4H PRN PRN Reason: Anxiety Stop: 07/04/23 19:26 Last Admin: 06/06/23 09:15 Dose: 25 mg Magnesium Hydroxide (Magnesium Hydroxide Susp 30 Ml Udc) 30 ml PO DAILY PRN PRN Reason: Constipation Stop: 07/04/23 19:26 Last Admin: 06/07/23 15:22 Dose: 30 ml Miscellaneous (Remove Nicoderm Patch) 1 each N/A DAILY@0859 [facility] Stop: 07/05/23 08:58 Last Admin: 06/07/23 09:53 Dose: 1 each Nicotine (Nicotine 21 Mg/24 Hr Tdsy) 21 mg TD QAM [facility] Stop: 07/05/23 08:59 Last Admin: 06/07/23 09:52 Dose: 21 mg Nicotine Polacrilex (Nicotine Polacrilex 2 Mg Gum) 1 piece MT PRN PRN PRN Reason: nicotine withdrawal Stop: 07/05/23 13:00 Last Admin: 06/06/23 19:20 Dose: 1 piece Olanzapine (Olanzapine 10 Mg Tab) 10 mg PO HS KIMBERLI Stop: 07/05/23 21:59 Last Admin: 06/07/23 20:57 Dose: 10 mg Olanzapine (Olanzapine 2.5 Mg Tab) 2.5 mg PO QAM [facility] Stop: 07/08/23 08:59 Olanzapine (Olanzapine 2.5 Mg Tab) 2.5 mg PO TID PRN PRN Reason: psychosis Stop: 07/06/23 14:03 Potassium Chloride (Potassium Chloride Crtab 20 Meq Tabcr) 20 meq PO QAM [facility] Stop: 07/05/23 13:14 Last Admin: 06/07/23 09:52 Dose: 20 meq Sodium Chloride (Sodium Chloride 0.65% Na Soln 45 Ml ([place])) 1 - 2 sprays NA PRN PRN PRN Reason: Nasal Dryness/Congestion Stop: 07/04/23 19:26 Thiamine HCl (Thiamine Hcl 100 Mg Tab) 100 [facility] Stop: 07/05/23 08:59 Last Admin: 06/07/23 09:52 Dose: 100 mg
[2023-06-08] MEDS ORDERED: POLYETHYLENE (MIRALAX) 17 GM PACK PO PRN (09:02)
[2023-06-08] MEDS ORDERED: DOCUSATE SODIUM 100 MG CAP PO PRN (09:02)
[2023-06-08] MEDS: NICOTINE 21 MG/24 HR TDSY TD SCH (09:05)
[2023-06-08] MEDS: THIAMINE HCL 100 MG TAB PO SCH (09:06)
[2023-06-08] MEDS: POTASSIUM CHLORIDE CRTAB 20 MEQ TABCR PO SCH (09:06)
[2023-06-08] MEDS: OLANZAPINE 2.5 MG TAB PO SCH (09:06)
[2023-06-08] MEDS: FOLIC ACID 1 MG TAB PO SCH (09:07)
[2023-06-08] MEDS: ACETAMINOPHEN 325 MG TAB PO PRN (15:10)
[2023-06-08] MEDS: hydrOXYzine HCl 25 MG TAB PO PRN (16:25)
[2023-06-08] MEDS: NALTREXONE HCL 50 MG TAB PO SCH (17:58)
[2023-06-08] MEDS: OLANZapine 10 MG TAB PO SCH (20:52)
[2023-06-09] MEDS: OLANZAPINE 2.5 MG TAB PO SCH (08:55)
[2023-06-09] MEDS: FOLIC ACID 1 MG TAB PO SCH (08:55)
[2023-06-09] MEDS: NICOTINE 21 MG/24 HR TDSY TD SCH (08:56)
[2023-06-09] MEDS: THIAMINE HCL 100 MG TAB PO SCH (08:56)
[2023-06-09] MEDS: hydrOXYzine HCl 25 MG TAB PO PRN ×3 (08:58→20:58)
--- NOTE | 2023-06-09 13:52 | Psychiatric Progress Note ---
Date of Service June 09, 2023 Impression / Recommendations Impression Juliet is a 32 year old woman with a history of PTSD, alcohol use disorder, BPD and anxiety who was admitted for psychosis and SI. Diagnostically consistent with unspecified psychosis with broad differential including MDD with psychotic features vs substance-induced or withdrawal (significant alcohol use, UDS negative for all others but concern for possible use of unknown "research tablets" or synthetic compound that would not show up on UDS) vs complex PTSD vs BPAD mixed episode (no current signs of grzegorz but possible contributed to events leading to hospitalization and now with more depressive presentation) vs depersonalization/derealization disorder (unlikely given psychosis) vs 2/2 medical condition given hypokalemia but otherwise considered medically stable by hospitalist service workup and normal head CT on admission. She is deemed in need of psychiatric hospitalization for diagnostic clarification, safety and stabilization, medication management and development of further coping skills. 06/09/2023: as per Dr. Castle impression. improving significantly. d/c MNPR. (1) Psychotic disorder: (2) Alcohol withdrawal: (3) Anxiety: (4) Alcohol use disorder: (5) Post traumatic stress disorder (PTSD): Plan 06/09/2023: continue current meds and tx plan. 06/08/2023: Start naltrexone 50mg qdinner, continue olanzapine, discontinue potassium supplementation given improvement 06/07/2023: Increase to olanzapine 2.5mg qAM and 10mg HS. fasting glucose and lipid panel in the AM. 06/06/2023: Increase olanzapine to 2.5mg QID prn for psychosis and 10mg HS po 06/05/2023: The patient was admitted to the [facility] ([facility] mental health unit) on q15 min checks (behavioral with suicide precautions) for safety. The patient will participate in group, recreational, and milieu therapies and will be offered additional individual and family sessions as clinically appropriate. -Continue AWSS with thiamine and folic acid -Potassium supplementation 20 meq qd and will recheck CMP in 2-3 days with fasting lipid profile and glucose -Given decreased AWSS scoring and her level of acute distress will start Olanzapine 10mg HS po as benefits felt to outweigh risks of lowered seizure threshold Inventory Assets Strengths: supportive relationships, willing to get treatment Needs: safety and stabilization, medication adjustment, additional coping skills, increased outpatient services Suicide Risk Level Suicide Risk Level: Moderate (q15 min suicide checks) (depression with SI , psychosis and derealization but feels safe in the hospital, able to safety contract and agrees to let nursing/staff know should they develop plan, intent or feel unable to remain safe.) Suicide Risk Level Comments: Risk Factors Assessment Male: No : Yes Do You Have Access To A Gun?: No Health Problems: No Mental Health Diagnoses: Yes Substance Use Disorders: Yes Previous Attempt: No Family History of Suicide: No Previous Psychiatric Hospitalization: No Protective Factors Assessment Employed: Yes Stable Relationships: Yes Supportive Family: Yes Interval History Identifying Information JULIET RIVERA is a 32-year-old woman who currently lives in [place] with her parents, has a history of anxiety, alcohol use disorder, PTSD and BPD, and was admitted on 06/04/23 18:14 on a 201 voluntary commitment for psychosis, odd behavior and SI. Chief Complaint "I'm feeling like I"m getting better". Review of Systems Sleep Information Total Hours of Sleep: 6 Meal Information Percent Meal Consumed - Breakfast: 100 Percent Meal Consumed - Lunch: 100 Percent Meal Consumed - Dinner: 100 Subjective Subjective Patient was seen & assessed and interval progress reviewed with nursing. No issues overnight. med compliant. behaviorally appropriate in the milieu Physical Exam Psychiatric Orientation: alert and oriented x 3 Apperance: appropriately dressed and appropriately groomed Eye Contact: good eye contact Motor Behavior: no abnormal motor movements Speech: normal rate/rhythm/volume of speech Affect: euthymic affect Mood: no depressed mood Thought Process: + concrete thought process Thought Content: reality based without delusions Suicidal Thoughts: denies suicidal thoughts Homicidal Thoughts: denies homicidal thoughts Hallucinations: no auditory hallucinations and no visual hallucinations Cognition: attention grossly intact and language grossly intact Estimated Intelligence: consistent with education level Insight: + limited insight Judgment: + limited judgement Vital Signs (Past 24 Hours) Last Vital Signs Temp 36.7 C 06/09/23 06:19 Pulse 69 06/09/23 06:22 Resp 16 06/09/23 06:19 BP 107/68 06/09/23 06:22 Pulse Ox 98 06/08/23 06:00 O2 Del Method Room Air 06/08/23 06:00 Results & Data (U) Current Inpatient Medications Current Inpatient Medications: Current Inpatient Medications Acetaminophen (Acetaminophen 325 Mg Tab) 650 mg PO Q4H PRN PRN Reason: Headache or Minor Fever Stop: 07/04/23 19:26 Last Admin: 06/08/23 15:10 Dose: 650 mg Al Hydrox/Mg Hydrox/Simethicone (Aluminum/Magnesium Susp 30 Ml Udc) 30 ml PO Q4H PRN PRN Reason: GI Upset Stop: 07/04/23 19:26 Bismuth Subsalicylate (Bismuth Subsalicylate Liqd 236 Ml) 15 ml PO PRN PRN PRN Reason: Loose Stool Stop: 07/04/23 19:26 Docusate Sodium (Docusate Sodium 100 Mg Cap) 100 mg PO BID PRN PRN Reason: Constipation Stop: 07/08/23 09:14 Last Admin: 06/08/23 17:58 Dose: 100 mg Folic Acid (Folic Acid 1 Mg Tab) 1 mg PO QAM [facility] Stop: 07/05/23 08:59 Last Admin: 06/09/23 08:55 Dose: 1 mg Hydroxyzine HCl (Hydroxyzine Hcl 25 Mg Tab) 50 mg PO HSZ PRN PRN Reason: Insomnia Stop: 07/04/23 19:26 Last Admin: 06/06/23 21:06 Dose: 50 mg Hydroxyzine HCl (Hydroxyzine Hcl 25 Mg Tab) 25 mg PO Q4H PRN PRN Reason: Anxiety Stop: 07/04/23 19:26 Last Admin: 06/09/23 08:58 Dose: 25 mg Magnesium Hydroxide (Magnesium Hydroxide Susp 30 Ml Udc) 30 ml PO DAILY PRN PRN Reason: Constipation Stop: 07/04/23 19:26 Last Admin: 06/07/23 15:22 Dose: 30 ml Miscellaneous (Remove Nicoderm Patch) 1 each N/A DAILY@0859 [facility] Stop: 07/05/23 08:58 Last Admin: 06/09/23 08:55 Dose: 1 each Naltrexone HCl (Naltrexone Hcl 50 Mg Tab) 50 mg PO DAILYBD [facility] Stop: 07/08/23 17:14 Last Admin: 06/08/23 17:58 Dose: 50 mg Nicotine (Nicotine 21 Mg/24 Hr Tdsy) 21 mg TD QAM [facility] Stop: 07/05/23 08:59 Last Admin: 06/09/23 08:56 Dose: Not Given Nicotine Polacrilex (Nicotine Polacrilex 2 Mg Gum) 1 piece MT PRN PRN PRN Reason: nicotine withdrawal Stop: 07/05/23 13:00 Last Admin: 06/06/23 19:20 Dose: 1 piece Olanzapine (Olanzapine 10 Mg Tab) 10 mg PO HS [facility] Stop: 07/05/23 21:59 Last Admin: 06/08/23 20:52 Dose: 10 mg Olanzapine (Olanzapine 2.5 Mg Tab) 2.5 mg PO QAM [facility] Stop: 07/08/23 08:59 Last Admin: 06/09/23 08:55 Dose: 2.5 mg Olanzapine (Olanzapine 2.5 Mg Tab) 2.5 mg PO TID PRN PRN Reason: psychosis Stop: 07/06/23 14:03 Polyethylene Glycol (Polyethylene (Miralax) 17 Gm Pack) 17 gm PO DAILY PRN PRN Reason: Constipation Stop: 07/08/23 09:01 Last Admin: 06/08/23 13:34 Dose: 17 gm Sodium Chloride (Sodium Chloride 0.65% Na Soln 45 Ml ([place])) 1 - 2 sprays NA PRN PRN PRN Reason: Nasal Dryness/Congestion Stop: 07/04/23 19:26 Thiamine HCl (Thiamine Hcl 100 Mg Tab) 100 mg PO QAM [facility] Stop: 07/05/23 08:59 Last Admin: 06/09/23 08:56 Dose: 100 mg Mental Health & Subst Abuse Tx Psychiatrist Name of Psychiatrist: Vivi Fish - Samantha Durán PA-C Psychiatrist's Date Of Appointment With Psychiatric Provider: 06/20/23 Time of Appointment with Psychiatrist: 2:00 PM Psychiatric Appointment Comment: [address] [facility], [place], [place] Therapist Name of Therapist: [facility] - Intake Therapist's Therapy Appointment Comment: [address] [facility], [address], [place], [place] Post Discharge Appointments Primary Care Physician Name Of Family Doctor/PCP: [facility] Date of Future Appointment with PCP: 06/15/23 Time of Appointment with PCP: 1:45 PM arrival time Provider Appointment Comment: Karyn Levy, [place] [id number] Contact Information Discharge Discharge Address: [address] [place] [address], [place] [address]
[2023-06-09] MEDS: NALTREXONE HCL 50 MG TAB PO SCH (18:38)
[2023-06-09] MEDS: OLANZapine 10 MG TAB PO SCH (20:57)
[2023-06-10] MEDS: THIAMINE HCL 100 MG TAB PO SCH (08:59)
[2023-06-10] MEDS: OLANZAPINE 2.5 MG TAB PO SCH (08:59)
[2023-06-10] MEDS: FOLIC ACID 1 MG TAB PO SCH (08:59)
[2023-06-10] MEDS: NICOTINE 21 MG/24 HR TDSY TD SCH (09:02)
[2023-06-10] MEDS: hydrOXYzine HCl 25 MG TAB PO PRN ×3 (09:38→20:40)
--- NOTE | 2023-06-10 12:20 | Psychiatric Progress Note ---
Date of Service June 10, 2023 Impression / Recommendations Impression Juliet is a 32 year old woman with a history of PTSD, alcohol use disorder, BPD and anxiety who was admitted for psychosis and SI. Diagnostically consistent with unspecified psychosis with broad differential including MDD with psychotic features vs substance-induced or withdrawal (significant alcohol use, UDS negative for all others but concern for possible use of unknown "research tablets" or synthetic compound that would not show up on UDS) vs complex PTSD vs BPAD mixed episode (no current signs of grzegorz but possible contributed to events leading to hospitalization and now with more depressive presentation) vs depersonalization/derealization disorder (unlikely given psychosis) vs 2/2 medical condition given hypokalemia but otherwise considered medically stable by hospitalist service workup and normal head CT on admission. She is deemed in need of psychiatric hospitalization for diagnostic clarification, safety and stabilization, medication management and development of further coping skills. 06/10/2023: improving (1) Psychotic disorder: (2) Alcohol withdrawal: (3) Anxiety: (4) Alcohol use disorder: (5) Post traumatic stress disorder (PTSD): Plan 06/10/2023: family meeting and finalize safety plan. 06/09/2023: continue current meds and tx plan. 06/08/2023: Start naltrexone 50mg qdinner, continue olanzapine, discontinue potassium supplementation given improvement 06/07/2023: Increase to olanzapine 2.5mg qAM and 10mg HS. fasting glucose and lipid panel in the AM. 06/06/2023: Increase olanzapine to 2.5mg QID prn for psychosis and 10mg HS po 06/05/2023: The patient was admitted to the [facility] ([facility] mental health unit) on q15 min checks (behavioral with suicide precautions) for safety. The patient will participate in group, recreational, and milieu therapies and will be offered additional individual and family sessions as clinically appropriate. -Continue AWSS with thiamine and folic acid -Potassium supplementation 20 meq qd and will recheck CMP in 2-3 days with fasting lipid profile and glucose -Given decreased AWSS scoring and her level of acute distress will start Olanzapine 10mg HS po as benefits felt to outweigh risks of lowered seizure threshold Inventory Assets Strengths: supportive relationships, willing to get treatment Needs: safety and stabilization, medication adjustment, additional coping skills, increased outpatient services Suicide Risk Level Suicide Risk Level: Moderate (q15 min suicide checks) Suicide Risk Level Comments: Risk Factors Assessment Male: No : Yes Do You Have Access To A Gun?: No Health Problems: No Mental Health Diagnoses: Yes Substance Use Disorders: Yes Previous Attempt: No Family History of Suicide: No Previous Psychiatric Hospitalization: No Protective Factors Assessment Employed: Yes Stable Relationships: Yes Supportive Family: Yes Interval History Identifying Information JULIET RIVERA is a 32-year-old woman who currently lives in [place] with her parents, has a history of anxiety, alcohol use disorder, PTSD and BPD, and was admitted on 06/04/23 18:14 on a 201 voluntary commitment for psychosis, odd behavior and SI. Chief Complaint "I'm ready to move forward and not back." Review of Systems Sleep Information Total Hours of Sleep: 6.5 Meal Information Percent Meal Consumed - Breakfast: 100 Percent Meal Consumed - Lunch: 100 Percent Meal Consumed - Dinner: 100 Subjective Subjective Patient was seen & assessed and interval progress reviewed with nursing. She denies cravings but "certainly I could see how easy it would be to have a beer when I leave here but I don't want to do that." Tolerating meds, less anxiety focussed. tolerating a roommate. Physical Exam Psychiatric Orientation: alert and oriented x 3 Apperance: appropriately dressed and appropriately groomed Eye Contact: good eye contact Motor Behavior: no abnormal motor movements Speech: normal rate/rhythm/volume of speech Affect: euthymic affect Mood: + anxious mood Thought Process: goal directed thought process Thought Content: reality based without delusions Suicidal Thoughts: denies suicidal thoughts Homicidal Thoughts: denies homicidal thoughts Hallucinations: no auditory hallucinations and no visual hallucinations Cognition: attention grossly intact and language grossly intact Estimated Intelligence: consistent with education level Vital Signs (Past 24 Hours) Last Vital Signs Temp 36.6 C 06/10/23 06:51 Pulse 57 L 06/10/23 06:52 Resp 16 06/10/23 06:51 BP 106/69 06/10/23 06:52 Pulse Ox 98 06/08/23 06:00 O2 Del Method Room Air 06/08/23 06:00 Results & Data ([facility]) Current Inpatient Medications Current Inpatient Medications: Current Inpatient Medications Acetaminophen (Acetaminophen 325 Mg Tab) 650 mg PO Q4H PRN PRN Reason: Headache or Minor Fever Stop: 07/04/23 19:26 Last Admin: 06/08/23 15:10 Dose: 650 mg Al Hydrox/Mg Hydrox/Simethicone (Aluminum/Magnesium Susp 30 Ml Udc) 30 ml PO Q4H PRN PRN Reason: GI Upset Stop: 07/04/23 19:26 Bismuth Subsalicylate (Bismuth Subsalicylate Liqd 236 Ml) 15 ml PO PRN PRN PRN Reason: Loose Stool Stop: 07/04/23 19:26 Docusate Sodium (Docusate Sodium 100 Mg Cap) 100 mg PO BID PRN PRN Reason: Constipation Stop: 07/08/23 09:14 Last Admin: 06/08/23 17:58 Dose: 100 mg Folic Acid (Folic Acid 1 Mg Tab) 1 mg PO QAM [facility] Stop: 07/05/23 08:59 Last Admin: 06/10/23 08:59 Dose: 1 mg Hydroxyzine HCl (Hydroxyzine Hcl 25 Mg Tab) 50 mg PO HSZ PRN PRN Reason: Insomnia Stop: 07/04/23 19:26 Last Admin: 06/09/23 20:58 Dose: 50 mg Hydroxyzine HCl (Hydroxyzine Hcl 25 Mg Tab) 25 mg PO Q4H PRN PRN Reason: Anxiety Stop: 07/04/23 19:26 Last Admin: 06/10/23 09:38 Dose: 25 mg Magnesium Hydroxide (Magnesium Hydroxide Susp 30 Ml Udc) 30 ml PO DAILY PRN PRN Reason: Constipation Stop: 07/04/23 19:26 Last Admin: 06/07/23 15:22 Dose: 30 ml Miscellaneous (Remove Nicoderm Patch) 1 each N/A DAILY@[id number] [facility] Stop: 07/05/23 08:58 Last Admin: 06/10/23 09:02 Dose: 1 each Naltrexone HCl (Naltrexone Hcl 50 Mg Tab) 50 mg PO DAILYBD [facility] Stop: 07/08/23 17:14 Last Admin: 06/09/23 18:38 Dose: 50 mg Nicotine (Nicotine 21 Mg/24 Hr Tdsy) 21 mg TD QAM [facility] Stop: 07/05/23 08:59 Last Admin: 06/10/23 09:02 Dose: Not Given Nicotine Polacrilex (Nicotine Polacrilex 2 Mg Gum) 1 piece MT PRN PRN PRN Reason: nicotine withdrawal Stop: 07/05/23 13:00 Last Admin: 06/06/23 19:20 Dose: 1 piece Olanzapine (Olanzapine 10 Mg Tab) 10 mg PO HS [facility] Stop: 07/05/23 21:59 Last Admin: 06/09/23 20:57 Dose: 10 mg Olanzapine (Olanzapine 2.5 Mg Tab) 2.5 mg PO QAM [facility] Stop: 07/08/23 08:59 Last Admin: 06/10/23 08:59 Dose: 2.5 mg Olanzapine (Olanzapine 2.5 Mg Tab) 2.5 mg PO TID PRN PRN Reason: psychosis Stop: 07/06/23 14:03 Polyethylene Glycol (Polyethylene (Miralax) 17 Gm Pack) 17 gm PO DAILY PRN PRN Reason: Constipation Stop: 07/08/23 09:01 Last Admin: 06/08/23 13:34 Dose: 17 gm Sodium Chloride (Sodium Chloride 0.65% Na Soln 45 Ml (Caroline)) 1 - 2 sprays NA PRN PRN PRN Reason: Nasal Dryness/Congestion Stop: 07/04/23 19:26 Thiamine HCl (Thiamine Hcl 100 Mg Tab) 100 mg PO QAM [facility] Stop: 07/05/23 08:59 Last Admin: 06/10/23 08:59 Dose: 100 mg Mental Health & Subst Abuse Tx Psychiatrist Name of Psychiatrist: Vivi Fish - Samantha Durán PA-C Psychiatrist's Date Of Appointment With Psychiatric Provider: 06/20/23 Time of Appointment with Psychiatrist: 2:00 PM Psychiatric Appointment Comment: [address] [facility], [place], [place] Therapist Name of Therapist: [facility] - Intake Therapist's Therapy Appointment Comment: [address] [facility], [address], [place], [place] Post Discharge Appointments Primary Care Physician Name Of Family Doctor/PCP: Alicia [facility] Date of Future Appointment with PCP: 06/15/23 Time of Appointment with PCP: 1:45 PM arrival time Provider Appointment Comment: Karyn Levy, [place] [id number] Contact Information Discharge Discharge [address]: [address] [place] [address], [place] [address]
[2023-06-10] MEDS: MAGNESIUM HYDROXIDE SUSP 30 ML UDC PO PRN (16:34)
[2023-06-10] MEDS: NALTREXONE HCL 50 MG TAB PO SCH (17:25)
[2023-06-10] MEDS: OLANZapine 10 MG TAB PO SCH (20:37)
[2023-06-11] MEDS: NICOTINE 21 MG/24 HR TDSY TD SCH (09:29)
[2023-06-11] MEDS: FOLIC ACID 1 MG TAB PO SCH (09:29)
[2023-06-11] MEDS: OLANZAPINE 2.5 MG TAB PO SCH (09:30)
[2023-06-11] MEDS: THIAMINE HCL 100 MG TAB PO SCH (09:30)
[2023-06-11] MEDS: hydrOXYzine HCl 25 MG TAB PO PRN (09:33)
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
== END 2023-06-11 13:01 | disposition home or self-care (01) | DRG 897 ==
LOC: SUATTDRO 18:14 → 3S 18:14